=== PATIENT | male | born 1945 | race Caucasian/White ===

== ENCOUNTER 2017-04-21 16:16 | Inpatient (IN) | payer MEDICARE, OTHER ==
[~2017-04-21] VITALS: Ht 175.3 cm; Wt 75.0 kg
[~2017-04-21 16:16] MED LIST: ASPI81TA28 PO; ATOR-26 PO; CLOP1TAB15 PO; FAMO20TA11 PO; MULT-506 PO
[2017-04-21] MEDS ORDERED: FLM4 PO (17:44)
[2017-04-21] MEDS ORDERED: PRS5 PO (17:44)
[2017-04-21 18:09] LABS: BASO % 0.5 %; BASO ABS # 0.03 K/uL (0-0.2); COMPLETE YES; EOS % 3.4 %; HEMATOCRIT 36.4 % (42-52); IG% 0.2 %; LYMPH % 11.1 %; LYMPH ABS # 0.61 K/uL (1.2-3.4); MEAN CELL VOLUME 95.8 fL (80-100); MEAN CORPUSCULAR HEMOGLOBIN 31.6 pg (25-34); MEAN PLATELET VOLUME 9.6 fL (7.4-10.4); MONO % 11.6 %; NEUT % 73.2 %; PLATELET COUNT 192 K/uL (130-400); WHITE BLOOD COUNT 5.52 K/uL (4.8-10.8)
[2017-04-21 18:25] LABS: ALT/SGPT 25 U/L (12-78); BLOOD UREA NITROGEN 15 mg/dl (7-18); BUN/CREATININE RATIO 13.5 (10-20); C-REACTIVE PROTEIN 0.49 mg/dl (0-0.29); CALCIUM 9.2 mg/dl (8.5-10.1); CARBON DIOXIDE 26 mmol/L (21-32); CHLORIDE 106 mmol/L (98-107); CREATININE 1.08 mg/dl (0.60-1.40); GLUCOSE 88 mg/dl (70-99); POTASSIUM 3.9 mmol/L (3.5-5.1); SODIUM 138 mmol/L (136-145)
[2017-04-21 18:29] LABS: ALB/GLOB RATIO 0.7 (0.9-2); ALKALINE PHOSPHATASE 76 U/L (45-117); AST/SGOT 20 U/L (15-37)
--- NOTE | 2017-04-21 18:42 | DIAGNOSTIC IMAGING REPORT ---
CT OF THE HEAD WITHOUT CONTRAST CLINICAL HISTORY: Right eye pain and ptosis. COMPARISON STUDY: No previous studies for comparison. CT DOSE: 537.48 mGy.cm TECHNIQUE: Helical axial images of the head were obtained without IV contrast. Automated exposure control was utilized for the study. A dose lowering technique was utilized adhering to the principles of ALARA. FINDINGS: No acute intracranial hemorrhage, midline shift or mass effect is present. Mild ventricular dilatation is proportional to sulcal enlargement and likely due to mild atrophy. The basilar cisterns are patent. There are no extra-axial collections. Mild white matter hypodensity suggests small vessel disease. There is minimal bilateral basal ganglia calcification. No findings are noted to suggest acute dural sinus thrombosis or acute territorial infarct. There is subtle asymmetric infiltration adjacent to the right globe, including minimal retrobulbar infiltration. There is no retrobulbar mass or fluid collection. IMPRESSION: 1. No acute intracranial findings. 2. Subtle asymmetric infiltration adjacent to the right globe, including minimal retrobulbar infiltration with no retrobulbar mass or fluid collection. This suggests an infectious or inflammatory process. Electronically signed by: Carter Portillo M.D. 04/21/2017 6:40 PM Dictated Date/Time: 04/21/2017 6:19 PM
[2017-04-21] MEDS: MoRPHine SULFATE 4 MG/ML 1 ML CARP\\VIAL IV PRN ×3 (19:15→22:30)
--- NOTE | 2017-04-21 19:59 | EMERGENCY ROOM VISIT NOTE ---
History Report prepared by Kavitha: Ran Hodges Under the Supervision of: Dr. Loy Nguyen M.D. First contact with patient: 16:45 Chief Complaint: EYE PAIN Stated Complaint: RT EYE PAIN- REFERRED History of Present Illness The patient is a 72 year old male who presents to the Emergency Room with complaints of constant right eye pain beginning two days ago. The patient was seen by his PCP this morning for his symptoms, and was referred to an [employer] black belt. He was then seen by his [employer] black belt and was referred to the ED. He notes that he had his eyes dilated while at the [employer] black belt. The patient has a history of multiple myeloma, and was initially diagnosed recently. He notes that he had a Zometa infusion last week, and began experiencing body aches and headache for the next few days. He states that his headache persisted as his right eye pain began. The patient states that his eyelid began drooping this morning. He states that he is able to see out of his eye normally. His eye pain is worsened with movement of his eye. The patient notes that he has three cardiac stents in place. He denies any weakness. He is on Plavix. Source of History: patient Onset: Two days ago Position: eye (right) Quality: other (pain with eyelid drooping) Timing: constant Modifying Factors (Worsening): movement (of eye) Associated Symptoms: + headache, No weakness Note: Additional symptoms: resolved full body aches. Review of Systems All systems have been listed, reviewed, and are negative other than those previously mentioned. Please see Additional Medical History Sheet. Past Medical & Surgical Medical Problems: (1) CAD (coronary artery disease) (2) GERD (gastroesophageal reflux disease) (3) History of diverticulosis (4) History of kidney stones (5) HLD (hyperlipidemia) (6) HTN (hypertension) (7) Multiple myeloma Social History Problems: (1) Chest pain Family History FH: cancer BROTHER (Multiple Myeloma) FH: heart attack FH: heart disease FATHER Social History Smoking Status: Never Smoker Alcohol Use: none Drug Use: none Marital Status: Occupation Status: retired Current/Historical Medications Scheduled Aspirin (Aspirin Ec), 81 MG PO HS Atorvastatin (Lipitor), 80 MG PO QDD Clopidogrel (Plavix), 75 MG PO DAILY Famotidine (Pepcid), 20 MG PO DAILY Finasteride (Finasteride), 5 MG PO QAM Multivitamin (Multivitamin), 1 TAB PO DAILY Tamsulosin HCl (Tamsulosin HCl), 0.4 MG PO HS Allergies Coded Allergies: Penicillins (Unverified Allergy, Unknown, "PASSED OUT", 04/21/17) Physical Exam Vital Signs Date Time Temp Pulse Resp B/P (MAP) Pulse Ox O2 Delivery O2 Flow Rate FiO2 04/21/17 21:23 71 18 146/82 96 Room Air 04/21/17 18:39 64 18 145/85 98 Room Air 04/21/17 16:18 36.4 78 18 156/88 99 Room Air Right Eye Acuity: 20/30 w glasses Left Eye Acuity: 20/25 w glasses Physical Exam GENERAL: Patient awake, alert, oriented x 3. Patient follows commands. Patient does not appear toxic. Patient is adequately hydrated and well- nourished. SKIN: No erythema, pallor, cyanosis or rash HEENT: Normal head, pupils equal, reactive to light and accommodation. Ptosis of the right eye. Pupils are dilated (due to dilation by the [employer] belt). Ears normal. Oral cavity and posterior pharynx appear normal. Neck: Without adenopathy, no neck vein distention. LUNGS: Clear to auscultation. No wheezes, no rales, no rhonchi. HEART: No murmurs. No gallops. No rubs ABDOMEN: No masses, no rebound, no hepatomegaly or splenomegaly. EXTREMITIES: No signs of trauma. No pedal or pretibial edema. No calf or thigh tenderness. NEUROLOGIC: Cranial nerves II-XII within normal limits other than ptosis of the right eye. Patient moves all extremities well. No slurred speech. No gross motor sensory function deficits. Medical Decision & Procedures ER Provider Diagnostic Interpretation: Radiology results as stated below per my review and radiologist interpretation: CT OF THE HEAD WITHOUT CONTRAST FINDINGS: No acute intracranial hemorrhage, midline shift or mass effect is present. Mild ventricular dilatation is proportional to sulcal enlargement and likely due to mild atrophy. The basilar cisterns are patent. There are no extra-axial collections. Mild white matter hypodensity suggests small vessel disease. There is minimal bilateral basal ganglia calcification. No findings are noted to suggest acute dural sinus thrombosis or acute territorial infarct. There is subtle asymmetric infiltration adjacent to the right globe, including minimal retrobulbar infiltration. There is no retrobulbar mass or fluid collection. IMPRESSION: 1. No acute intracranial findings. 2. Subtle asymmetric infiltration adjacent to the right globe, including minimal retrobulbar infiltration with no retrobulbar mass or fluid collection. This suggests an infectious or inflammatory process. Electronically signed by: Carter Portillo M.D. 04/21/2017 6:40 PM Laboratory Results Test 04/21/17 17:50 Immature Granulocyte % (Auto) 0.2 % White Blood Count 5.52 K/uL (4.8-10.8) Red Blood Count 3.80 M/uL (4.7-6.1) Hemoglobin 12.0 g/dL (14.0-18.0) Hematocrit 36.4 % (42-52) Mean Corpuscular Volume 95.8 fL (80-100) Mean Corpuscular Hemoglobin 31.6 pg (25-34) Mean Corpuscular Hemoglobin Concent 33.0 g/dl (32-36) Platelet Count 192 K/uL (130-400) Mean Platelet Volume 9.6 fL (7.4-10.4) Neutrophils (%) (Auto) 73.2 % Lymphocytes (%) (Auto) 11.1 % Monocytes (%) (Auto) 11.6 % Eosinophils (%) (Auto) 3.4 % Basophils (%) (Auto) 0.5 % Neutrophils # (Auto) 4.04 K/uL (1.4-6.5) Lymphocytes # (Auto) 0.61 K/uL (1.2-3.4) Monocytes # (Auto) 0.64 K/uL (0.11-0.59) Eosinophils # (Auto) 0.19 K/uL (0-0.5) Basophils # (Auto) 0.03 K/uL (0-0.2) Immature Granulocyte # (Auto) 0.01 K/uL (0.00-0.02) Erythrocyte Sedimentation Rate 75 mm/hr (0-14) Total Bilirubin 0.2 mg/dl (0.2-1) Aspartate Amino Transf (AST/SGOT) 20 U/L (15-37) Alanine Aminotransferase (ALT/SGPT) 25 U/L (12-78) Alkaline Phosphatase 76 U/L (45-117) Troponin I < 0.015 ng/ml (0-0.045) C-Reactive Protein 0.49 mg/dl (0-0.29) Total Protein 8.2 gm/dl (6.4-8.2) Albumin 3.3 gm/dl (3.4-5.0) Globulin 4.9 gm/dl (2.5-4.0) Albumin/Globulin Ratio 0.7 (0.9-2) Procalcitonin < 0.05 ng/ml (0-0.5) Laboratory results as stated above per my review. Medications Administered Medications (Trade) Dose Ordered Sig/Álvaro Route Start Time Stop Time Status Last Admin Dose Admin Morphine Sulfate (MoRPHine SULFATE INJ) 4 mg Q1H PRN IV 04/21/17 19:00 04/21/17 23:23 DC 04/21/17 22:30 4 MG ECG Indication: other (headache) Rate (beats per minute): 68 Rhythm: normal sinus Findings: no acute ischemic change, no ectopy ED Course 164: Past medical records reviewed. The patient was evaluated in room A4B. A complete history and physical examination was performed. 1899: I updated the patient. He agrees to MRI. Ordered Morphine Sulfate 4 mg IV. 2029: The patient was signed out to Dr. Mayfield at the change of shift pending MRI results. Medical Decision Nurses notes reviewed. Medical history sheet reviewed. Differential diagnosis includes but is not limited to: multiple myeloma with metastasis, CVA, ICH, giant cell arteritis, Anam's syndrome and carotid aneurysm/stenosis. The patient was seen earlier today by his family physician and later by an [employer] black belt who sent him here. records from the eye doctor were reviewed. Multiple labs and imaging were obtained. CT was concerning for some slight infiltration behind the right eye. The patient did require pain medication while here. An MRI of his orbits was ordered but pending at time of sign off to Dr. Mayfield. I discussed care with the family who were awaiting results of the MRI. Medication Reconcilliation Current Medication List: was personally reviewed by me Blood Pressure Screening Patient's blood pressure: Elevated blood pressure Blood pressure disposition: Elevated BP felt to be situational Consults Time Called: 1849 Consulting Physician: Dr. Portillo - Radiology Returned Call: 1899 Discussed the patient's case with Dr. Portillo. He recommends MRI of the brain and orbits. Impression Primary Impression: Pain, eye, right Additional Impression: Ptosis, right Scribe Attestation The scribe's documentation has been prepared under my direction and personally reviewed by me in its entirety. I confirm that the note above accurately reflects all work, treatment, procedures, and medical decision making performed by me. Departure Information Dispostion Still a Patient (Signed out to Dr. Mayfield) Referrals Tacos Ngo M.D. (PCP) Patient Instructions My [facility] Problem Qualifiers
[2017-04-21] MEDS ORDERED: GADAVIST IV PRN (20:45)
--- NOTE | 2017-04-21 21:19 | DIAGNOSTIC IMAGING REPORT ---
MRI OF THE ORBITS COMBO CLINICAL HISTORY: Right eye pain and ptosis. COMPARISON STUDY: CT of the brain dated 04/21/2017. TECHNIQUE: MRI of the orbits is performed utilizing various T1 and T2-weighted sequences in the axial, sagittal, and coronal planes. Contrast-enhanced images were acquired following the IV administration of 7.5 cc of Gadavist. Diffusion imaging of the brain is also performed. FINDINGS: The bony orbits are grossly intact. There is nonspecific inflammatory stranding identified within the retrobulbar fat of the right orbit with patchy nonspecific enhancement. Faint inflammatory change is also suggested in the retrobulbar fat of the left orbit. No enhancing mass lesion is identified. No fluid collection is seen. The extraocular muscles are normal and symmetric. The majority inflammatory changes centered around the optic nerve. The optic nerves themselves are normal as visualized. The cavernous sinuses are normal in appearance. Trace mucosal thickening is seen within the frontal and ethmoid sinuses. The mastoid air cells are well pneumatized. The calvarium is intact as visualized. The brain parenchyma is normal as imaged noting age-related involutional change and mild microangiopathic disease. There is no restricted diffusion to suggest acute ischemia. No abnormal enhancement is seen on the postcontrast images. IMPRESSION: 1. There is nonspecific stranding and patchy abnormal enhancement identified within the retrobulbar fat in the right orbit. The appearance is nonspecific and suggests an infectious or inflammatory process such cellulitis or optic perineuritis. Clinical correlation will be essential and follow-up with ophthalmology is recommended. 2. Faint inflammatory change is also suggested in the retrobulbar fat of the left orbit. 3. No enhancing mass or localized fluid collection is identified in either orbit. 4. The extraocular muscles are normal and symmetric. 5. There is no significant adjacent paranasal sinus disease. Electronically signed by: Rl Alvarez M.D. 04/21/2017 9:17 PM Dictated Date/Time: 04/21/2017 9:03 PM
--- NOTE | 2017-04-21 21:58 | EMERGENCY ROOM VISIT NOTE ---
ED Visit Note This patient was signed out to me awaiting MRI results of the periorbital area. The results were similar to the CT scan results suggesting a nonspecific retro -all were inflammatory infectious process. The patient was started on IV cefepime. I spoke with the hospitalist who will see the patient further inpatient evaluation and care. The patient does have discomfort with movement of the eye, especially looking upward as well as a ptosis. The pupils appear to be symmetric and equally reactive to light. There is no myosis. Diagnosis: Retro-bulbar infection/inflammation of right eye
--- NOTE | 2017-04-21 22:05 | History and Physical ---
History & Physical Date & Time of Service: Apr 21, 2017 at 22:04 Chief Complaint: Rt Eye Pain- Referred Primary Care Physician: Tacos Ngo M.D. History of Present Illness Source: patient This is a 72 yo M with medical hx of CAD S/p X3 stent in RCA in 2010 , hyperlipidemia , Multiple Myeloma , recently diagnosed -came to ED with complain of Rt eye pain and swelling for past 1 day , pt mentions yesterday he woke up with rt sided eye pain , pressure /tenderness around rt orbit area, no headache, no fever or chills no trauma to eye had photophobia , no vision change, no diplopia or blurred vision ,no vision field deficit no itching , has clear secretion , was seen at [facility] with Dr Ashford -concerned about increased intra ocular pressure -pt was referred to [facility] pt mention - he had detail dilated eye exam , found to have normal vision , normal intra ocular pressure Import/Export Specialist was concern for extra ocular compression /pathology -pt was advised to come to ED for detail exam /scans and possible IV abx for extraocular infection /cellulitis in ER , pt was found afebrile , vitals stable , normal white count MRI of brain /orbit : There is nonspecific stranding and patchy abnormal enhancement identified within the retrobulbar fat in the right orbit. The appearance is nonspecific and suggests an infectious or inflammatory process such cellulitis or optic perineuritis. Past Medical/Surgical History Medical Problems: (1) CAD (coronary artery disease) Permanent Comment: S/p 3 stents to RCA in 2010 Status: Chronic (2) GERD (gastroesophageal reflux disease) Status: Chronic (3) History of diverticulosis Status: Chronic (4) History of kidney stones Status: Chronic (5) HLD (hyperlipidemia) Status: Chronic (6) HTN (hypertension) Status: Chronic (7) Multiple myeloma Status: Chronic Family History FH: cancer BROTHER (Multiple Myeloma) FH: heart attack FH: heart disease FATHER Social History Smoking Status: Never Smoker Drug Use: none Marital Status: Housing status: lives with significant other Occupational Status: retired Immunizations History of Influenza Vaccine: Yes Influenza Vaccine Date: Jan 31, 2010 History of Tetanus Vaccine?: Unknown History of Pneumococcal: Yes Pneumococcal Date: Apr 02, 2009 History of Hepatitis B Vaccine: No Multi-Drug Resistant Organisms History of MDRO: No Allergies Coded Allergies: Penicillins (Unverified Allergy, Unknown, "PASSED OUT", 04/21/17) Home Medications Scheduled Aspirin (Aspirin Ec), 81 MG PO HS Atorvastatin (Lipitor), 80 MG PO QDD Clopidogrel (Plavix), 75 MG PO DAILY Famotidine (Pepcid), 20 MG PO DAILY Finasteride (Finasteride), 5 MG PO QAM Multivitamin (Multivitamin), 1 TAB PO DAILY Tamsulosin HCl (Tamsulosin HCl), 0.4 MG PO HS Review of Systems Constitutional: No fever, No chills, No sweats, No weight loss, No weakness, No fatigue, No problem reported Eyes: + eye pain (rt sided eye pain ), + redness, + discharge, + problem reported (rt sided photophobia ) Respiratory: No cough, No sputum, No wheezing, No shortness of breath, No dyspnea on exertion, No dyspnea at rest, No hemoptysis, No problem reported Cardiovascular: No chest pain, No orthopnea, No PND, No edema, No claudication , No palpitations, No problem reported Abdomen: No pain, No nausea, No vomiting, No diarrhea, No constipation, No GI bleeding, No problem reported Musculoskeletal: No joint pain, No muscle pain, No swelling, No calf pain, No problem reported Genitourinary - Male: No hematuria, No dysuria, No urinary frequency, No urinary urgency, No urinary hesitancy, No urinary retention, No urinary incontinence, No penile discharge, No lesions, No impotence, No problem reported Neurologic: No memory loss, No paralysis, No weakness, No numbness/tingling, No vertigo, No balance problems, No problem reported Psychiatric: No depression symptoms, No anhedonism, No anxiety, No insomnia, No substance abuse, No problem reported Physical Exam Vital Signs Date Time Temp Pulse Resp B/P (MAP) Pulse Ox O2 Delivery O2 Flow Rate FiO2 04/21/17 21:23 71 18 146/82 96 Room Air 04/21/17 18:39 64 18 145/85 98 Room Air 04/21/17 16:18 36.4 78 18 156/88 99 Room Air General Appearance: WD/WN, no apparent distress Head: normocephalic, atraumatic Eyes: + pertinent finding (rt eye + swelling , positive tenderness on orbit , lid lag with swellling , conjunctiva injected , experiences pain with EOM movement ) ENT: hearing grossly normal, pharynx normal Neck: supple, no adenopathy, thyroid normal, no carotid bruits, trachea midline Respiratory/Chest: lungs clear, normal breath sounds, no respiratory distress Cardiovascular: regular rate, rhythm, no edema, no gallop, no JVD, no murmur, normal peripheral pulses Abdomen/GI: normal bowel sounds, non tender, soft Extremities/Musculoskelatal: normal inspection, no calf tenderness, normal capillary refill, no pedal edema, normal range of motion Neurologic/Psych: no motor/sensory deficits, alert, normal mood/affect Skin: normal color, warm/dry, no rash Lymphatic: no adenopathy Diagnostics Laboratory Results Results Past 24 Hours Test 04/21/17 17:50 Range/Units White Blood Count 5.52 4.8-10.8 K/uL Red Blood Count 3.80 4.7-6.1 M/uL Hemoglobin 12.0 14.0-18.0 g/dL Hematocrit 36.4 42-52 % Mean Corpuscular Volume 95.8 80-100 fL Mean Corpuscular Hemoglobin 31.6 25-34 pg Mean Corpuscular Hemoglobin Concent 33.0 32-36 g/dl Platelet Count 192 130-400 K/uL Mean Platelet Volume 9.6 7.4-10.4 fL Neutrophils (%) (Auto) 73.2 % Lymphocytes (%) (Auto) 11.1 % Monocytes (%) (Auto) 11.6 % Eosinophils (%) (Auto) 3.4 % Basophils (%) (Auto) 0.5 % Neutrophils # (Auto) 4.04 1.4-6.5 K/uL Lymphocytes # (Auto) 0.61 1.2-3.4 K/uL Monocytes # (Auto) 0.64 0.11-0.59 K/uL Eosinophils # (Auto) 0.19 0-0.5 K/uL Basophils # (Auto) 0.03 0-0.2 K/uL RDW Standard Deviation 45.5 36.4-46.3 fL RDW Coefficient of Variation 13.0 11.5-14.5 % Immature Granulocyte % (Auto) 0.2 % Immature Granulocyte # (Auto) 0.01 0.00-0.02 K/uL Erythrocyte Sedimentation Rate 75 0-14 mm/hr Sodium Level 138 136-145 mmol/L Potassium Level 3.9 3.5-5.1 mmol/L Chloride Level 106 98-107 mmol/L Carbon Dioxide Level 26 21-32 mmol/L Anion Gap 6.0 3-11 mmol/L Blood Urea Nitrogen 15 7-18 mg/dl Creatinine 1.08 0.60-1.40 mg/dl Est Creatinine Clear Calc Drug Dose 60.0 ml/min Estimated GFR () 78.0 Estimated GFR (Non- 67.3 BUN/Creatinine Ratio 13.5 10-20 Random Glucose 88 70-99 mg/dl Calcium Level 9.2 8.5-10.1 mg/dl Total Bilirubin 0.2 0.2-1 mg/dl Aspartate Amino Transf (AST/SGOT) 20 15-37 U/L Alanine Aminotransferase (ALT/SGPT) 25 12-78 U/L Alkaline Phosphatase 76 45-117 U/L Troponin I < 0.015 0-0.045 ng/ml C-Reactive Protein 0.49 0-0.29 mg/dl Total Protein 8.2 6.4-8.2 gm/dl Albumin 3.3 3.4-5.0 gm/dl Globulin 4.9 2.5-4.0 gm/dl Albumin/Globulin Ratio 0.7 0.9-2 Microbiology Results 04/21/17 Blood Culture, Ordered Pending 04/21/17 Blood Culture, Ordered Pending Diagnostic Radiology MRI OF ORBIT : IMPRESSION: 1. There is nonspecific stranding and patchy abnormal enhancement identified within the retrobulbar fat in the right orbit. The appearance is nonspecific and suggests an infectious or inflammatory process such cellulitis or optic perineuritis. Clinical correlation will be essential and follow-up with ophthalmology is recommended. 2. Faint inflammatory change is also suggested in the retrobulbar fat of the left orbit. 3. No enhancing mass or localized fluid collection is identified in either orbit. 4. The extraocular muscles are normal and symmetric. 5. There is no significant adjacent paranasal sinus disease. CT HEAD WITHOUT CONTRAST : IMPRESSION: 1. No acute intracranial findings. 2. Subtle asymmetric infiltration adjacent to the right globe, including minimal retrobulbar infiltration with no retrobulbar mass or fluid collection. This suggests an infectious or inflammatory process. Impression Assessment and Plan RT SIDED RETRO ORBITAL PAIN : presented with 2 days hx of rt eye pain and swelling no drainage no fever or chills, no trauma seen by His PCP today , was referred to [facility] -concern for marked proptosis of eye asked to come to ED for evaluation MRI of Orbit shows : There is nonspecific stranding and patchy abnormal enhancement identified within the retrobulbar fat in the right orbit. The appearance is nonspecific and suggests an infectious or inflammatory process such cellulitis or optic perineuritis. no fever or chills , normal white count no evidence of systemic infection no visual change empirically started on Iv Vancomycin and Zosyn ; ordered for blood culture Ophthalmology eval requested MULTIPLE MYELOMA : recently Dx : incidental finding of Lytic bone lesion on 03/19/17 during admission in [facility] for urinary retention /hematuria Bone marrow biopsy on 04/09/17 shows 16% plasma cells , monoclonal kappa plasma cell PET scan showed -multiple FGD avid lytic lesion throughout the axial and appendicular skeleton consistent with multiple myeloma follows with Heme Onc Dr Alicia pt is schedule to start on Chemotherapy Revlimid and Dexamethasone , and Zometa every 4 weeks for lytic bone lesion /MM/hypercalcemia started on Acyclovir for prophylaxis while on Velcade has not started on Valcade /Revlimid infusion yet pt received IV Zometa infusion last Wednesday04/16/17 ; felt weak , tired with joint pain over the weekend pt contacted Heme Onc Dr Escoto office with concern for Rt eye pain and possible side effect form Zometa pt was reassured -medication side effect was very unlikely arranged for Medicine follow up at the Clinic for rt eye exam HX OF CAD S/P PTCA : S/p 3 stents to RCA in 2010 no complain of chest pain and sob cont Aspirin , Plavix , statin DYSLIPIDEMIA : on Lipitor 80 mg daily BPH : cont Flomax , Proscar FULL CODE DVT PROPHYLAXIS : scd and teds ambulate DISPOSITION : Expected to be discharged home when medically stable Medicine follow up with Dr Ngo Level of Care Med/Surg Resuscitation Status FULL RESUSCITATION VTE Prophylaxis VTE Risk Assessment Done? Y/N: Yes Risk Level: Moderate Given or contraindicated: T.E.D. Stockings, SCD's Additional Copies To Tacos Ngo M.D. Gray, Arnoldo Jensen MD
[2017-04-21] MEDS ORDERED: VANCOMYCIN INJ 1,750 MG in SODIUM CHLORIDE 0.9% 500ML 500 ML IV STA (22:11)
[2017-04-21] MEDS ORDERED: MoRPHine SULFATE 2 MG/ML CARP IV PRN (22:15)
[2017-04-21 23:10] VITALS: BP 154/81; PULSE 81; TEMP 36.7; O2SAT 96; Ht 175.3 cm; Wt 75.0 kg
[2017-04-21] MEDS ORDERED: VANCOMYCIN CONSULT ACTIVE PRN (23:30)
[2017-04-21] MEDS ORDERED: POLYETHYLENE (MIRALAX) 17 GM PACK PO PRN (23:45)
[2017-04-21] MEDS ORDERED: ACETAMINOPHEN 325 MG TAB PO PRN (23:45)
[2017-04-21] MEDS ORDERED: MAGNESIUM HYDROXIDE SUSP 30 ML UDC PO PRN (23:45)
[2017-04-21] MEDS ORDERED: OXYCODONE/ACETAMINOPHEN 5-325 TAB PO PRN ×2 (23:45)
[2017-04-21] MEDS ORDERED: ONDANSETRON INJ 2 MG/ML 2 ML VIAL IV PRN (23:45)
[2017-04-21] MEDS ORDERED: ALUMINUM/MAGNESIUM/SIMETH (MAALOX MAX) 30 ML UDC PO PRN (23:45)
[2017-04-21] MEDS ORDERED: ZOLPIDEM TARTRATE 5 MG TAB PO PRN (23:45)
[2017-04-22] MEDS: CEFEPIME IV 2,000 MG in SYRINGE 7.5 ML IV SCH ×4 (02:02→23:28)
[2017-04-22] MEDS ORDERED: CEFEPIME IV 2,000 MG in DEXTROSE 5% 100ML 100 ML IV SCH (06:00)
[2017-04-22 06:31] LABS: HEMATOCRIT 34.6 % (42-52); MEAN CELL VOLUME 95.8 fL (80-100); MEAN CORPUSCULAR HEMOGLOBIN 31.6 pg (25-34); MEAN CORPUSCULAR HGB CONC 32.9 g/dl (32-36); MEAN PLATELET VOLUME 9.4 fL (7.4-10.4); PLATELET COUNT 176 K/uL (130-400); RED BLOOD COUNT 3.61 M/uL (4.7-6.1); WHITE BLOOD COUNT 6.01 K/uL (4.8-10.8)
[2017-04-22 07:11] LABS: CALCIUM 8.3 mg/dl (8.5-10.1); CREATININE 0.97 mg/dl (0.60-1.40); POTASSIUM 3.9 mmol/L (3.5-5.1)
[2017-04-22 07:33] VITALS: BP 123/75; PULSE 71; TEMP 37; O2SAT 97
[2017-04-22] MEDS: CLOPIDOGREL BISULFATE 75 MG TAB PO SCH (08:31)
[2017-04-22] MEDS: MULTIVITAMIN TAB PO SCH (08:31)
[2017-04-22] MEDS: FAMOTIDINE 20 MG TAB PO SCH (08:32)
[2017-04-22] MEDS: FINASTERIDE 5 MG TAB PO SCH (08:32)
[2017-04-22] MEDS: MoRPHine SULFATE 2 MG/ML CARP IV PRN ×2 (08:42→13:14)
--- NOTE | 2017-04-22 08:59 | Pharmacy Progress Note ---
Pharmacy Abx Initial Consult Date of Service Apr 22, 2017. Pharmacy Dosing Scope Date of Consult: 04/21/17 Consultation requested by: Dr. Medel Pharmacy is consulted to initiate Vancomycin IV dosing therapy, order appropriate labs and adjust drug dose/frequency. Subjective The patient is a 72 year old male admitted on Apr 21, 2017 at 22:00 with right sided eye cellulitis vs optic perineuritis. Objective Height (Feet): 5 Height (Inches): 9.00 Weight (Kilograms): 74.600 Vital Signs (Past 12Hrs) Vital Signs Past 12 Hours Date Time Temp Pulse Resp B/P (MAP) Pulse Ox O2 Delivery O2 Flow Rate FiO2 04/22/17 07:33 37.0 71 20 123/75 (91) 97 04/22/17 00:00 Room Air 04/21/17 23:10 36.7 81 18 154/81 96 Room Air 04/21/17 22:45 76 18 140/85 96 Room Air 04/21/17 21:23 71 18 146/82 96 Room Air Lab Results (24Hrs) Test 04/21/17 17:50 04/22/17 06:02 White Blood Count 5.52 6.01 Red Blood Count 3.80 3.61 Hemoglobin 12.0 11.4 Hematocrit 36.4 34.6 Mean Corpuscular Volume 95.8 95.8 Mean Corpuscular Hemoglobin 31.6 31.6 Mean Corpuscular Hemoglobin Concent 33.0 32.9 Platelet Count 192 176 Mean Platelet Volume 9.6 9.4 Neutrophils (%) (Auto) 73.2 Lymphocytes (%) (Auto) 11.1 Monocytes (%) (Auto) 11.6 Eosinophils (%) (Auto) 3.4 Basophils (%) (Auto) 0.5 Neutrophils # (Auto) 4.04 Lymphocytes # (Auto) 0.61 Monocytes # (Auto) 0.64 Eosinophils # (Auto) 0.19 Basophils # (Auto) 0.03 RDW Standard Deviation 45.5 45.9 RDW Coefficient of Variation 13.0 13.0 Immature Granulocyte % (Auto) 0.2 Immature Granulocyte # (Auto) 0.01 Erythrocyte Sedimentation Rate 75 Sodium Level 138 137 Potassium Level 3.9 3.9 Chloride Level 106 106 Carbon Dioxide Level 26 23 Anion Gap 6.0 8.0 Blood Urea Nitrogen 15 12 Creatinine 1.08 0.97 Est Creatinine Clear Calc Drug Dose 60.0 66.8 Estimated GFR () 78.0 88.8 Estimated GFR (Non- 67.3 76.6 BUN/Creatinine Ratio 13.5 12.0 Random Glucose 88 122 Calcium Level 9.2 8.3 Total Bilirubin 0.2 Aspartate Amino Transferase (AST) 20 Alanine Aminotransferase (ALT) 25 Alkaline Phosphatase 76 Troponin I < 0.015 C-Reactive Protein 0.49 Total Protein 8.2 Albumin 3.3 Globulin 4.9 Albumin/Globulin Ratio 0.7 Procalcitonin < 0.05 Micro Results Date/Time Source Procedure Growth Status 04/21/17 22:43 Blood Blood Culture Pending Received 04/21/17 22:38 Blood Blood Culture Pending Received Assessment & Plan Assessment 72 year old male admitted with right sided eye cellulitis vs optic perineuritis requiring IV Vancomycin and Cefepime. Plan IV Vancomycin for treatment of possible cellulitis Vancomycin IV * Loading dose: 1750 mg (23 mg/kg) x 1 at 2246 on 04/21 * Maintenance dose: 1000 mg IV (13.4 mg/kg) every 14 hours * Estimated pharmacokinetic parameters: T1/2 = 11.5hrs, Wilder = 0.06/hr, Vd = 0.7L /kg * Goal trough level for cellulitis : ~15 mcg/mL * Trough level ordered for 04/23/17 prior to 1400 dose Pharmacy will continue to follow and will adjust dose/frequency as necessary. Thank you.
[2017-04-22] MEDS ORDERED: VANCOMYCIN INJ 1,000 MG in SODIUM CHLORIDE 0.9% 250ML 250 ML IV SCH (09:00)
[2017-04-22] MEDS: VANCOMYCIN INJ 1,000 MG in SODIUM CHLORIDE 0.9% 250ML 250 ML IV SCH ×2 (09:33→23:28)
[2017-04-22] MEDS ORDERED: METHYLPREDNISOLONE IV 40 MG in SYRINGE 0 ML IV ONE ×2 (12:00→18:15)
--- NOTE | 2017-04-22 13:56 | Progress Note ---
Internal Med Progress Note Date of Service: Apr 22, 2017. Provider Documentation: SUBJECTIVE: Seen and examined at bedside Reports Right eye pain, double vision, tearing, sensitivity to light Denies chest pain, SOB, abd pain, dizziness No other complaints Family at beside OBJECTIVE: Vital Signs-as noted below Physical Exam: General Appearance:Moderately built and nourished, no apparent distress Head: normocephalic, Atraumatic Eyes: Right eye, congestion, tender, tearing, + Double vision Neck: supple, Trachea midline Respiratory/Chest: Normal breath sounds, CTA Cardiovascular: S1, S2, No murmur Abdomen/GI:Soft, Non tender, Bowel sounds present Extremities/Musculoskelatal:normal inspection, no edema Neurologic/Psych:AAOX3, grossly no focal neurological deficits Skin: normal color, warm Lab data as noted below. ASSESSMENT & PLAN: Right Retrobulbar pain: ? Retrobulbar cellulitis/Optic Neuritis presented with 2 days history of rt eye pain and swelling, and double vision Evaluated at [facility] Prior to admission-concern for marked proptosis of eye MRI of Orbit as below: No systemic infection Continue empiric IV Vancomycin and Cefepime blood culture: pending Will give a dose of solumedrol Ophthalmology eval requested: await for input Multiple Myeloma: recently diagnosed incidental finding of Lytic bone lesion on 03/19/[address] [facility] for urinary retention /hematuria Bone marrow biopsy on 04/09/17 shows 16% plasma cells , monoclonal kappa plasma cell PET scan showed -multiple FGD avid lytic lesion throughout the axial and appendicular skeleton consistent with multiple myeloma Follows with Heme Onc Dr Alicia Planned for Chemotherapy Revlimid and Dexamethasone , and Zometa every 4 weeks for lytic bone lesion /MM/hypercalcemia started on Acyclovir for prophylaxis while on Velcade has not started on Valcade /Revlimid infusion yet pt received IV Zometa infusion last Wednesday04/16/17 pt contacted Heme Onc Dr Escoto office with concern for Rt eye pain and possible side effect form Zometa pt was reassured -medication side effect was very unlikely H/O CAD S/P PTCA : S/p 3 stents to RCA in 2010 no complain of chest pain and sob continue Aspirin , Plavix , statin Dyslipidemia: Continue Lipitor 80 mg daily BPH : cont Flomax , Proscar Follows with as outpatient Code Status Full Code DVT Px: SCDs ambulate DISPOSITION : Expected to be discharged home when medically stable Medicine follow up with Dr Ngo PROCEDURES: Orbit MRI: 1. There is nonspecific stranding and patchy abnormal enhancement identified within the retrobulbar fat in the right orbit. The appearance is nonspecific and suggests an infectious or inflammatory process such cellulitis or optic perineuritis. Clinical correlation will be essential and follow-up with ophthalmology is recommended. 2. Faint inflammatory change is also suggested in the retrobulbar fat of the left orbit. 3. No enhancing mass or localized fluid collection is identified in either orbit. 4. The extraocular muscles are normal and symmetric. 5. There is no significant adjacent paranasal sinus disease. Vital Signs: Date Time Temp Pulse Resp B/P (MAP) Pulse Ox O2 Delivery O2 Flow Rate FiO2 04/22/17 08:30 Room Air 04/22/17 07:33 37.0 71 20 123/75 (91) 97 04/22/17 00:00 Room Air 04/21/17 23:10 36.7 81 18 154/81 96 Room Air 04/21/17 22:45 76 18 140/85 96 Room Air 04/21/17 21:23 71 18 146/82 96 Room Air 04/21/17 18:39 64 18 145/85 98 Room Air 04/21/17 16:18 36.4 78 18 156/88 99 Room Air Lab Results: Results Past 24 Hours Test 04/21/17 17:50 04/22/17 06:02 Range/Units White Blood Count 5.52 6.01 4.8-10.8 K/uL Red Blood Count 3.80 3.61 4.7-6.1 M/uL Hemoglobin 12.0 11.4 14.0-18.0 g/dL Hematocrit 36.4 34.6 42-52 % Mean Corpuscular Volume 95.8 95.8 80-100 fL Mean Corpuscular Hemoglobin 31.6 31.6 25-34 pg Mean Corpuscular Hemoglobin Concent 33.0 32.9 32-36 g/dl Platelet Count 192 176 130-400 K/uL Mean Platelet Volume 9.6 9.4 7.4-10.4 fL Neutrophils (%) (Auto) 73.2 % Lymphocytes (%) (Auto) 11.1 % Monocytes (%) (Auto) 11.6 % Eosinophils (%) (Auto) 3.4 % Basophils (%) (Auto) 0.5 % Neutrophils # (Auto) 4.04 1.4-6.5 K/uL Lymphocytes # (Auto) 0.61 1.2-3.4 K/uL Monocytes # (Auto) 0.64 0.11-0.59 K/uL Eosinophils # (Auto) 0.19 0-0.5 K/uL Basophils # (Auto) 0.03 0-0.2 K/uL RDW Standard Deviation 45.5 45.9 36.4-46.3 fL RDW Coefficient of Variation 13.0 13.0 11.5-14.5 % Immature Granulocyte % (Auto) 0.2 % Immature Granulocyte # (Auto) 0.01 0.00-0.02 K/uL Erythrocyte Sedimentation Rate 75 0-14 mm/hr Sodium Level 138 137 136-145 mmol/L Potassium Level 3.9 3.9 3.5-5.1 mmol/L Chloride Level 106 106 98-107 mmol/L Carbon Dioxide Level 26 23 21-32 mmol/L Anion Gap 6.0 8.0 3-11 mmol/L Blood Urea Nitrogen 15 12 7-18 mg/dl Creatinine 1.08 0.97 0.60-1.40 mg/dl Est Creatinine Clear Calc Drug Dose 60.0 66.8 ml/min Estimated GFR () 78.0 88.8 Estimated GFR (Non- 67.3 76.6 BUN/Creatinine Ratio 13.5 12.0 10-20 Random Glucose 88 122 70-99 mg/dl Calcium Level 9.2 8.3 8.5-10.1 mg/dl Total Bilirubin 0.2 0.2-1 mg/dl Aspartate Amino Transf (AST/SGOT) 20 15-37 U/L Alanine Aminotransferase (ALT/SGPT) 25 12-78 U/L Alkaline Phosphatase 76 45-117 U/L Troponin I < 0.015 0-0.045 ng/ml C-Reactive Protein 0.49 0-0.29 mg/dl Total Protein 8.2 6.4-8.2 gm/dl Albumin 3.3 3.4-5.0 gm/dl Globulin 4.9 2.5-4.0 gm/dl Albumin/Globulin Ratio 0.7 0.9-2 Procalcitonin < 0.05 0-0.5 ng/ml Microbiology Results 04/21/17 Blood Culture, Received Pending 04/21/17 Blood Culture, Received Pending
[2017-04-22 15:10] VITALS: BP 121/71; PULSE 69; TEMP 37.1; O2SAT 96
[2017-04-22] MEDS: ATORVASTATIN 40 MG TAB PO SCH (16:57)
--- NOTE | 2017-04-22 17:49 | Ophthalmology Consultation ---
Ophthalmology Consultation Date of Service: Apr 22, 2017. Requested By: [facility] History of Present Illness: 72 y/o male admitted for right eye pain, ptosis CC: right eye pain Vision: unchanged Location (of CC): OD Quality/Severity: was severe, but now improved after getting IV solumedrol Duration: started <1 week ago Timing: seemed to have started after receiving zometa for multiple myeloma Context: above Associated Signs/Symptoms: diplopia Modifying Factors: steroid improved No other eye complaints. Mood and Affect: normal Past Ocular History: Right Eye: 1. glasses Left Eye: 1. glasses Medications: see EMR Relevant Past Medical History: multiple myeloma [facility] ([facility]) OD: 20/30 OS: 20/30 IOP: 18 OD and 19 OS tonopen VF: full to count fingers OU Motility: restricted adduction OD; pain w/ EOM OD External: +upper lid edema OD; The ocular adnexae are unremarkable OS SLE: Lids/Lashes: +upper lid edema OD; wnl OS Conjunctiva/Sclera: +chemosis OD; quiet OS Cornea: clear OU Anterior Chamber: deep and quiet OU Iris: normal OU; no NVI OU Lens: +nsc OU Dilated fundus exam OD: vitreous: clear optic nerve: 0.3, no edema/pallor/NVD macula: wnl vessels: wnl Midperiphery: wnl periphery: no RT/RD Dilated fundus exam OS: vitreous: clear optic nerve: 0.3, no edema/pallor/NVD macula: wnl vessels: wnl Midperiphery: wnl periphery: no RT/RD Assessment and Plan: 1. 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 Edin Núñez comes to [facility] once per week) -recommend high dose oral steroids 1mg/kg for 1 week upon discharge, then slow taper over 4 weeks until f/u orbital specialist Jacques De Anda DO
[2017-04-22 19:47] VITALS: BP 130/73; PULSE 65; TEMP 36.8; O2SAT 96
[2017-04-22] MEDS: ASPIRIN 81 MG ECTAB PO SCH (20:17)
[2017-04-22] MEDS: TAMSULOSIN HCL 0.4 MG CAP PO SCH (20:17)
[2017-04-22 23:47] VITALS: BP 134/70; PULSE 63; TEMP 36.4; O2SAT 96
[2017-04-23 05:16] VITALS: BP 116/66; PULSE 63; TEMP 36.5; O2SAT 98
[2017-04-23 06:30] LABS: BASO % 0.1 %; BASO ABS # 0.01 K/uL (0-0.2); COMPLETE YES; EOS % 0.1 %; HEMATOCRIT 36.5 % (42-52); IG% 0.2 %; LYMPH % 6.6 %; LYMPH ABS # 0.54 K/uL (1.2-3.4); MEAN CELL VOLUME 95.3 fL (80-100); MEAN CORPUSCULAR HEMOGLOBIN 31.3 pg (25-34); MEAN CORPUSCULAR HGB CONC 32.9 g/dl (32-36); MEAN PLATELET VOLUME 9.5 fL (7.4-10.4); PLATELET COUNT 176 K/uL (130-400); RED BLOOD COUNT 3.83 M/uL (4.7-6.1); WHITE BLOOD COUNT 8.16 K/uL (4.8-10.8)
[2017-04-23 07:01] LABS: CALCIUM 8.9 mg/dl (8.5-10.1); CREATININE 0.85 mg/dl (0.60-1.40); POTASSIUM 4.2 mmol/L (3.5-5.1)
[2017-04-23 07:16] VITALS: BP 129/75; PULSE 64; TEMP 36.3; O2SAT 98
[2017-04-23] MEDS ORDERED: METHYLPREDNISOLONE IV 40 MG in SYRINGE 0 ML IV ONE (08:00)
[2017-04-23] MEDS: CLOPIDOGREL BISULFATE 75 MG TAB PO SCH (08:12)
[2017-04-23] MEDS: FINASTERIDE 5 MG TAB PO SCH (08:12)
[2017-04-23] MEDS: MULTIVITAMIN TAB PO SCH (08:12)
[2017-04-23] MEDS: FAMOTIDINE 20 MG TAB PO SCH (08:12)
[2017-04-23] MEDS: CEFEPIME IV 2,000 MG in SYRINGE 7.5 ML IV SCH ×2 (08:16→17:06)
[2017-04-23 11:25] VITALS: BP 133/70; PULSE 64; TEMP 36.7; O2SAT 96
--- NOTE | 2017-04-23 12:55 | Progress Note ---
Internal Med Progress Note Date of Service: Apr 23, 2017. Provider Documentation: SUBJECTIVE: Seen and examined at bedside Significant improvement from yesterday eye pain, double vision resolved Denies chest pain, SOB, abd pain, dizziness No other complaints Family at beside OBJECTIVE: Vital Signs-as noted below Physical Exam: General Appearance:Moderately built and nourished, no apparent distress Head: normocephalic, Atraumatic Eyes: Right eye congestion improved Neck: supple, Trachea midline Respiratory/Chest: Normal breath sounds, CTA Cardiovascular: S1, S2, No murmur Abdomen/GI:Soft, Non tender, Bowel sounds present Extremities/Musculoskelatal:normal inspection, no edema Neurologic/Psych:AAOX3, grossly no focal neurological deficits Skin: normal color, warm Lab data as noted below. ASSESSMENT & PLAN: Right Retrobulbar pain:Nonspecific orbital inflammation, possible pseudotumor presented with 2 days history of rt eye pain and swelling, and double vision Appreciate Ophthalmology Input Needs follow up with orbital specialist Dr. Edin Núñez at [facility] [address] for further evaluation on 04/26/17 at 12:20pm MRI of Orbit as below: No signs of systemic infection Continue empiric IV Vancomycin and Cefepime blood culture:No growth to date Continue solumedrol Plan to discharge on PO Abx and prednisone upon discharge Multiple Myeloma: recently diagnosed incidental finding of Lytic bone lesion on 03/19/17 during admission in [facility] for urinary retention /hematuria Bone marrow biopsy on 04/09/17 shows 16% plasma cells , monoclonal kappa plasma cell PET scan showed -multiple FGD avid lytic lesion throughout the axial and appendicular skeleton consistent with multiple myeloma Follows with Heme Onc Dr Alicia Planned for Chemotherapy Revlimid and Dexamethasone , and Zometa every 4 weeks for lytic bone lesion /MM/hypercalcemia started on Acyclovir for prophylaxis while on Velcade has not started on Valcade /Revlimid infusion yet pt received IV Zometa infusion last Wednesday04/16/17 pt contacted Heme Onc Dr Escoto office with concern for Rt eye pain and possible side effect form Zometa pt was reassured -medication side effect was very unlikely Discussed with : check serum Viscosity level H/O CAD S/P PTCA : S/p 3 stents to RCA in 2010 no complain of chest pain and sob continue Aspirin , Plavix , statin Dyslipidemia: Continue Lipitor 80 mg daily BPH : continue Flomax , Proscar Follows with as outpatient Code Status Full Code DVT Px: SCDs ambulate DISPOSITION : Plan to discharge home tomorrow if stable Follow up your physician Dr Ngo on 04/29/17 at 10:05 am Follow up with orbital specialist Dr. Edin Núñez at [facility] for further evaluation on 04/26/17 at 12:20pm PROCEDURES: Orbit MRI: 1. There is nonspecific stranding and patchy abnormal enhancement identified within the retrobulbar fat in the right orbit. The appearance is nonspecific and suggests an infectious or inflammatory process such cellulitis or optic perineuritis. Clinical correlation will be essential and follow-up with ophthalmology is recommended. 2. Faint inflammatory change is also suggested in the retrobulbar fat of the left orbit. 3. No enhancing mass or localized fluid collection is identified in either orbit. 4. The extraocular muscles are normal and symmetric. 5. There is no significant adjacent paranasal sinus disease. Vital Signs: Date Time Temp Pulse Resp B/P (MAP) Pulse Ox O2 Delivery O2 Flow Rate FiO2 04/23/17 16:00 Room Air 04/23/17 14:48 36.7 64 20 118/69 (85) 96 Room Air 04/23/17 11:25 36.7 64 20 133/70 (91) 96 Room Air 04/23/17 08:00 Room Air 04/23/17 07:16 36.3 64 18 129/75 (93) 98 Room Air 04/23/17 05:16 36.5 63 16 116/66 (83) 98 Room Air 04/23/17 00:00 Room Air 04/22/17 23:47 36.4 63 16 134/70 (91) 96 Room Air 04/22/17 19:47 36.8 65 18 130/73 (92) 96 Room Air Lab Results: Results Past 24 Hours Test 04/23/17 06:13 04/23/17 13:18 Range/Units White Blood Count 8.16 4.8-10.8 K/uL Red Blood Count 3.83 4.7-6.1 M/uL Hemoglobin 12.0 14.0-18.0 g/dL Hematocrit 36.5 42-52 % Mean Corpuscular Volume 95.3 80-100 fL Mean Corpuscular Hemoglobin 31.3 25-34 pg Mean Corpuscular Hemoglobin Concent 32.9 32-36 g/dl Platelet Count 176 130-400 K/uL Mean Platelet Volume 9.5 7.4-10.4 fL Neutrophils (%) (Auto) 81.0 % Lymphocytes (%) (Auto) 6.6 % Monocytes (%) (Auto) 12.0 % Eosinophils (%) (Auto) 0.1 % Basophils (%) (Auto) 0.1 % Neutrophils # (Auto) 6.60 1.4-6.5 K/uL Lymphocytes # (Auto) 0.54 1.2-3.4 K/uL Monocytes # (Auto) 0.98 0.11-0.59 K/uL Eosinophils # (Auto) 0.01 0-0.5 K/uL Basophils # (Auto) 0.01 0-0.2 K/uL RDW Standard Deviation 44.2 36.4-46.3 fL RDW Coefficient of Variation 12.7 11.5-14.5 % Immature Granulocyte % (Auto) 0.2 % Immature Granulocyte # (Auto) 0.02 0.00-0.02 K/uL Erythrocyte Sedimentation Rate 68 0-14 mm/hr Sodium Level 136 136-145 mmol/L Potassium Level 4.2 3.5-5.1 mmol/L Chloride Level 104 98-107 mmol/L Carbon Dioxide Level 24 21-32 mmol/L Anion Gap 8.0 3-11 mmol/L Blood Urea Nitrogen 10 7-18 mg/dl Creatinine 0.85 0.60-1.40 mg/dl Est Creatinine Clear Calc Drug Dose 76.3 ml/min Estimated GFR () 99.5 Estimated GFR (Non- 85.8 BUN/Creatinine Ratio 12.0 10-20 Random Glucose 111 70-99 mg/dl Calcium Level 8.9 8.5-10.1 mg/dl Vancomycin Level Trough 8.8 SEE COMMENT mcg/ml
[2017-04-23] MEDS ORDERED: VANCOMYCIN TROUGH ONE (13:30)
[2017-04-23] MEDS: VANCOMYCIN INJ 1,000 MG in SODIUM CHLORIDE 0.9% 250ML 250 ML IV SCH (14:25)
[2017-04-23 14:48] VITALS: BP 118/69; PULSE 64; TEMP 36.7; O2SAT 96
--- NOTE | 2017-04-23 16:14 | Pharmacy Progress Note ---
Pharmacy Abx Dose Progress Nt Date of Service Apr 23, 2017. Pharmacy Dosing Scope The patient is currently receiving the following antimicrobial agents per Pharmacy consult: 1000 mg IV every 14 hours Objective Height (Feet): 5 Height (Inches): 9.00 Weight (Kilograms): 75.400 Vital Signs (Past 12Hrs) Vital Signs Past 12 Hours Date Time Temp Pulse Resp B/P (MAP) Pulse Ox O2 Delivery O2 Flow Rate FiO2 04/23/17 14:48 36.7 64 20 118/69 (85) 96 Room Air 04/23/17 11:25 36.7 64 20 133/70 (91) 96 Room Air 04/23/17 08:00 Room Air 04/23/17 07:16 36.3 64 18 129/75 (93) 98 Room Air 04/23/17 05:16 36.5 63 16 116/66 (83) 98 Room Air Lab Results (24Hrs) Item Value Date Time Creatinine 0.85 mg/dl 04/23/17 0613 Est Creatinine Clear Calc Drug Dose 76.3 ml/min 04/23/17 0613 Estimated GFR () 99.5 04/23/17 0613 Estimated GFR (Non- 85.8 04/23/17 0613 Laboratory Tests (24 Hours) Test 04/23/17 06:13 Erythrocyte Sedimentation Rate 68 mm/hr (0-14) H White Blood Count 8.16 K/uL (4.8-10.8) Red Blood Count 3.83 M/uL (4.7-6.1) L Hemoglobin 12.0 g/dL (14.0-18.0) L Hematocrit 36.5 % (42-52) L Mean Corpuscular Volume 95.3 fL (80-100) Mean Corpuscular Hemoglobin 31.3 pg (25-34) Mean Corpuscular Hemoglobin Concent 32.9 g/dl (32-36) Platelet Count 176 K/uL (130-400) Mean Platelet Volume 9.5 fL (7.4-10.4) Neutrophils (%) (Auto) 81.0 % Lymphocytes (%) (Auto) 6.6 % Monocytes (%) (Auto) 12.0 % Eosinophils (%) (Auto) 0.1 % Basophils (%) (Auto) 0.1 % Neutrophils # (Auto) 6.60 K/uL (1.4-6.5) H Lymphocytes # (Auto) 0.54 K/uL (1.2-3.4) L Monocytes # (Auto) 0.98 K/uL (0.11-0.59) H Eosinophils # (Auto) 0.01 K/uL (0-0.5) Basophils # (Auto) 0.01 K/uL (0-0.2) Micro Results Date/Time Source Procedure Growth Status 04/21/17 22:43 Blood Blood Culture - Preliminary NO GROWTH TO DATE. Resulted 04/21/17 22:38 Blood Blood Culture - Preliminary NO GROWTH TO DATE. Resulted Assessment & Plan Assessment 72 year old male receiving vancomycin 1,000mg every 14 hours and cefepime 2 grams every 8 hours for treatment of right sided eye cellulitis vs optic perineuritis. Day # 3/ of antimicrobial therapy Plan Vancomycin IV * Trough level of 8.8 mcg/mL on 04/23/17 is subtherapeutic. * Change to Vancomycin 1,000 mg IV every 12 hours * Goal trough level for Cellulitis : 15 mcg/mL * Trough or random level ordered for: 04/25/17 prior to 12 noon dose Pharmacy will continue to follow and will adjust dose/frequency as necessary. Thank you.
[2017-04-23] MEDS: ATORVASTATIN 40 MG TAB PO SCH (17:07)
[2017-04-23 19:26] VITALS: BP 125/72; PULSE 71; TEMP 36.7; O2SAT 97
[2017-04-23] MEDS: METHYLPREDNISOLONE IV 40 MG in SYRINGE 0 ML IV SCH (20:21)
[2017-04-23] MEDS: ASPIRIN 81 MG ECTAB PO SCH (20:24)
[2017-04-23] MEDS: TAMSULOSIN HCL 0.4 MG CAP PO SCH (20:25)
[2017-04-23 23:23] VITALS: BP 125/73; PULSE 69; TEMP 36.7; O2SAT 99
[2017-04-24] MEDS ORDERED: VANCOMYCIN INJ 1,000 MG in SODIUM CHLORIDE 0.9% 250ML 250 ML IV SCH ×2
[2017-04-24] MEDS: CEFEPIME IV 2,000 MG in SYRINGE 7.5 ML IV SCH ×2 (00:23→09:12)
[2017-04-24 05:14] VITALS: BP 110/65; PULSE 67; TEMP 36.5; O2SAT 98
[2017-04-24 07:17] LABS: BUN/CREATININE RATIO 16.7 (10-20); CALCIUM 8.9 mg/dl (8.5-10.1); CREATININE 0.87 mg/dl (0.60-1.40); POTASSIUM 4.4 mmol/L (3.5-5.1)
[2017-04-24 07:21] VITALS: BP 115/65; PULSE 60; TEMP 36.5; O2SAT 97
--- NOTE | 2017-04-24 09:08 | Progress Note ---
Internal Med Progress Note Date of Service: Apr 24, 2017. Provider Documentation: SUBJECTIVE: Seen and examined at bedside Feels well Minimal R eye discomfort double vision resolved Denies chest pain, SOB, abd pain, dizziness No other complaints Eager to get discharged OBJECTIVE: Vital Signs-as noted below Physical Exam: General Appearance:Moderately built and nourished, no apparent distress Head: normocephalic, Atraumatic Eyes: Right eye congestion improved Neck: supple, Trachea midline Respiratory/Chest: Normal breath sounds, CTA Cardiovascular: S1, S2, No murmur Abdomen/GI:Soft, Non tender, Bowel sounds present Extremities/Musculoskelatal:normal inspection, no edema Neurologic/Psych:AAOX3, grossly no focal neurological deficits Skin: normal color, warm Lab data as noted below. ASSESSMENT & PLAN: Right Retrobulbar pain:Nonspecific orbital inflammation, possible pseudotumor presented with 2 days history of rt eye pain and swelling, and double vision Appreciate Ophthalmology Input Needs follow up with orbital specialist Dr. Edin Núñez at [facility] for further evaluation on 04/26/17 at 12:20pm MRI of Orbit as below: No signs of systemic infection Continue empiric IV Vancomycin and Cefepime blood culture:No growth to date Continue solumedrol Will switch to PO Abx and prednisone Multiple Myeloma: recently diagnosed incidental finding of Lytic bone lesion on 03/19/17 during admission in [facility] for urinary retention /hematuria Bone marrow biopsy on 04/09/17 shows 16% plasma cells , monoclonal kappa plasma cell PET scan showed -multiple FGD avid lytic lesion throughout the axial and appendicular skeleton consistent with multiple myeloma Follows with Heme Onc Dr Alicia Planned for Chemotherapy Revlimid and Dexamethasone , and Zometa every 4 weeks for lytic bone lesion /MM/hypercalcemia started on Acyclovir for prophylaxis while on Velcade has not started on Valcade /Revlimid infusion yet pt received IV Zometa infusion last Wednesday04/16/17 pt contacted Heme Onc Dr Escoto office with concern for Rt eye pain and possible side effect form Zometa pt was reassured -medication side effect was very unlikely Discussed with : check serum Viscosity level: pending H/O CAD S/P PTCA : S/p 3 stents to RCA in 2010 no complain of chest pain and sob continue Aspirin , Plavix , statin Dyslipidemia: Continue Lipitor 80 mg daily BPH : continue Flomax , Proscar Follows with as outpatient Code Status Full Code DVT Px: SCDs ambulate DISPOSITION : Plan to discharge home tomorrow if stable Follow up your physician Dr Ngo on 04/29/17 at 10:05 am Follow up with orbital specialist Dr. Edin Núñez at [facility] for further evaluation on 04/26/17 at 12:20pm Follow up with your Heme Oncologist in 1 week as advised Complete the antibiotic and prednisone course as prescribed Seek immediate medical attention if your symptoms reoccur or worsen PROCEDURES: Orbit MRI: 1. There is nonspecific stranding and patchy abnormal enhancement identified within the retrobulbar fat in the right orbit. The appearance is nonspecific and suggests an infectious or inflammatory process such cellulitis or optic perineuritis. Clinical correlation will be essential and follow-up with ophthalmology is recommended. 2. Faint inflammatory change is also suggested in the retrobulbar fat of the left orbit. 3. No enhancing mass or localized fluid collection is identified in either orbit. 4. The extraocular muscles are normal and symmetric. 5. There is no significant adjacent paranasal sinus disease. Vital Signs: Date Time Temp Pulse Resp B/P (MAP) Pulse Ox O2 Delivery O2 Flow Rate FiO2 04/24/17 07:21 36.5 60 22 115/65 (82) 97 Room Air 04/24/17 05:14 36.5 67 22 110/65 (80) 98 Room Air 04/24/17 00:00 Room Air 04/23/17 23:23 36.7 69 19 125/73 (90) 99 Room Air 04/23/17 20:00 Room Air 04/23/17 19:26 36.7 71 19 125/72 (89) 97 Room Air 04/23/17 16:00 Room Air 04/23/17 14:48 36.7 64 20 118/69 (85) 96 Room Air 04/23/17 11:25 36.7 64 20 133/70 (91) 96 Room Air Lab Results: Results Past 24 Hours Test 04/23/17 13:18 04/23/17 18:49 04/24/17 06:08 Range/Units Vancomycin Level Trough 8.8 SEE COMMENT mcg/ml Sodium Level 140 136-145 mmol/L Potassium Level 4.4 3.5-5.1 mmol/L Chloride Level 108 98-107 mmol/L Carbon Dioxide Level 23 21-32 mmol/L Anion Gap 9.0 3-11 mmol/L Blood Urea Nitrogen 15 7-18 mg/dl Creatinine 0.87 0.60-1.40 mg/dl Est Creatinine Clear Calc Drug Dose 74.5 ml/min Estimated GFR () 98.5 Estimated GFR (Non- 85.0 BUN/Creatinine Ratio 16.7 10-20 Random Glucose 124 70-99 mg/dl Calcium Level 8.9 8.5-10.1 mg/dl
[2017-04-24] MEDS: FAMOTIDINE 20 MG TAB PO SCH (09:12)
[2017-04-24] MEDS: CLOPIDOGREL BISULFATE 75 MG TAB PO SCH (09:12)
[2017-04-24] MEDS: MULTIVITAMIN TAB PO SCH (09:12)
[2017-04-24] MEDS: METHYLPREDNISOLONE IV 40 MG in SYRINGE 0 ML IV SCH (09:13)
[2017-04-24] MEDS: FINASTERIDE 5 MG TAB PO SCH (09:13)
[2017-04-24] MEDS ORDERED: PRD10 PO (09:18)
[2017-04-24] MEDS ORDERED: LEVO1TAB35 PO (09:18)
--- NOTE | 2017-04-24 09:22 | Discharge Summary ---
Discharge Summary Date of Service Apr 24, 2017. Discharge Summary Admission Date: Apr 21, 2017 at 22:00 Discharge Date: Apr 24, 2017 Discharge Disposition: Home Principal Diagnosis: Nonspecific orbital inflammation, possible pseudotumor Procedures: CT head: 1. No acute intracranial findings. 2. Subtle asymmetric infiltration adjacent to the right globe, including minimal retrobulbar infiltration with no retrobulbar mass or fluid collection. This suggests an infectious or inflammatory process. Orbit MRI: 1. There is nonspecific stranding and patchy abnormal enhancement identified within the retrobulbar fat in the right orbit. The appearance is nonspecific and suggests an infectious or inflammatory process such cellulitis or optic perineuritis. Clinical correlation will be essential and follow-up with ophthalmology is recommended. 2. Faint inflammatory change is also suggested in the retrobulbar fat of the left orbit. 3. No enhancing mass or localized fluid collection is identified in either orbit. 4. The extraocular muscles are normal and symmetric. 5. There is no significant adjacent paranasal sinus disease. Consultations: Ophthalmology Pending Studies/Follow-Up: Follow up your physician Dr Ngo on 04/29/17 at 10:05 am Follow up with orbital specialist Dr. Edin Núñez at [facility] for further evaluation on 04/26/17 at 12:20pm Follow up with your Heme Oncologist in 1 week as advised Complete the antibiotic and prednisone course as prescribed Seek immediate medical attention if your symptoms reoccur or worsen Medication Reconciliation New Medications: Levofloxacin (Levaquin) 750 Mg Tab 750 MG PO DAILY for 5 Days, #5 TAB Prednisone (Prednisone) 10 Mg Tab 70 MG PO DAILY for 5 Days, #35 TABS Continued Medications: Aspirin (Aspirin Ec) 81 Mg Tab 81 MG PO HS Atorvastatin (Lipitor) 80 Mg Tab 80 MG PO QDD, TAB Clopidogrel (Plavix) 75 Mg Tab 75 MG PO DAILY, TAB Famotidine (Pepcid) 20 Mg Tab 20 MG PO DAILY, TAB Finasteride (Finasteride) 5 Mg Tab 5 MG PO QAM Multivitamin (Multivitamin) Tab 1 TAB PO DAILY, TAB Tamsulosin HCl (Tamsulosin HCl) 0.4 Mg Cap 0.4 MG PO HS Admission Information HPI (per Admitting provider): This is a 72 yo M with medical hx of CAD S/p X3 stent in RCA in 2010 , hyperlipidemia , Multiple Myeloma , recently diagnosed -came to ED with complain of Rt eye pain and swelling for past 1 day , pt mentions yesterday he woke up with rt sided eye pain , pressure /tenderness around rt orbit area, no headache, no fever or chills no trauma to eye had photophobia , no vision change, no diplopia or blurred vision ,no vision field deficit no itching , has clear secretion , was seen at [facility] with Dr Ashford -concerned about increased intra ocular pressure -pt was referred to [facility] pt mention - he had detail dilated eye exam , found to have normal vision , normal intra ocular pressure [employer] was concern for extra ocular compression /pathology -pt was advised to come to ED for detail exam /scans and possible IV abx for extraocular infection /cellulitis in ER , pt was found afebrile , vitals stable , normal white count MRI of brain /orbit : There is nonspecific stranding and patchy abnormal enhancement identified within the retrobulbar fat in the right orbit. The appearance is nonspecific and suggests an infectious or inflammatory process such cellulitis or optic perineuritis. Physical Exam (per Admitting): General Appearance: WD/WN, no apparent distress Head: normocephalic, atraumatic Eyes: + pertinent finding (rt eye + swelling , positive tenderness on orbit , lid lag with swellling , conjunctiva injected , experiences pain with EOM movement ) ENT: hearing grossly normal, pharynx normal Neck: supple, no adenopathy, thyroid normal, no carotid bruits, trachea midline Respiratory/Chest: lungs clear, normal breath sounds, no respiratory distress Cardiovascular: regular rate, rhythm, no edema, no gallop, no JVD, no murmur , normal peripheral pulses Abdomen/GI: normal bowel sounds, non tender, soft Extremities/Musculoskelatal: normal inspection, no calf tenderness, normal capillary refill, no pedal edema, normal range of motion Neurologic/Psych: no motor/sensory deficits, alert, normal mood/affect Skin: normal color, warm/dry, no rash Lymphatic: no adenopathy Hospital Course Right Retrobulbar pain:Nonspecific orbital inflammation, possible pseudotumor presented with 2 days history of rt eye pain and swelling, and double vision Appreciate Ophthalmology Input Needs follow up with orbital specialist Dr. Edin Núñez at [facility] for further evaluation on 04/26/17 at 12:20pm MRI of Orbit as below: No signs of systemic infection Continue empiric IV Vancomycin and Cefepime blood culture:No growth to date Continue solumedrol Will switch to PO Abx and prednisone Multiple Myeloma: recently diagnosed incidental finding of Lytic bone lesion on 03/19/17 during admission in [facility] for urinary retention /hematuria Bone marrow biopsy on 04/09/17 shows 16% plasma cells , monoclonal kappa plasma cell PET scan showed -multiple FGD avid lytic lesion throughout the axial and appendicular skeleton consistent with multiple myeloma Follows with Heme Onc Dr Alicia Planned for Chemotherapy Revlimid and Dexamethasone , and Zometa every 4 weeks for lytic bone lesion /MM/hypercalcemia started on Acyclovir for prophylaxis while on Velcade has not started on Valcade /Revlimid infusion yet pt received IV Zometa infusion last Wednesday04/16/17 pt contacted Heme Onc Dr Escoto office with concern for Rt eye pain and possible side effect form Zometa pt was reassured -medication side effect was very unlikely Discussed with : check serum Viscosity level: pending H/O CAD S/P PTCA : S/p 3 stents to RCA in 2010 no complain of chest pain and sob continue Aspirin , Plavix , statin Dyslipidemia: Continue Lipitor 80 mg daily BPH : continue Flomax , Proscar Follows with as outpatient Code Status Full Code DVT Px: SCDs ambulate DISPOSITION : Plan to discharge home tomorrow if stable Follow up your physician Dr Ngo on 04/29/17 at 10:05 am Follow up with orbital specialist Dr. Edin Núñez at [facility] for further evaluation on 04/26/17 at 12:20pm Follow up with your Heme Oncologist in 1 week as advised Complete the antibiotic and prednisone course as prescribed Seek immediate medical attention if your symptoms reoccur or worsen PROCEDURES: Orbit MRI: 1. There is nonspecific stranding and patchy abnormal enhancement identified within the retrobulbar fat in the right orbit. The appearance is nonspecific and suggests an infectious or inflammatory process such cellulitis or optic perineuritis. Clinical correlation will be essential and follow-up with ophthalmology is recommended. 2. Faint inflammatory change is also suggested in the retrobulbar fat of the left orbit. 3. No enhancing mass or localized fluid collection is identified in either orbit. 4. The extraocular muscles are normal and symmetric. 5. There is no significant adjacent paranasal sinus disease. Total time spent on discharge = 33 minutes This includes examination of the patient, discharge planning, medication reconciliation, and communication with other providers. Discharge Instructions Discharge Instructions Date of Service Apr 24, 2017. Admission Reason for Admission: Right Eye Pain,Ptosis,Right Discharge Discharge Diagnosis / Problem: Nonspecific orbital inflammation, possible pseudotumor Discharge Goals Goal(s): Decrease discomfort, Improve function Activity Recommendations Activity Limitations: resume your previous activity Exercise/Sports Limitations: as tolerated Driving or Machine Use: Do not drive until cleared by your Physician . Instructions / Follow-Up Instructions / Follow-Up Follow up your physician Dr Ngo on 04/29/17 at 10:05 am Follow up with orbital specialist Dr. Edin Núñez at [facility] for further evaluation on 04/26/17 at 12:20pm Follow up with your Heme Oncologist in 1 week as advised Complete the antibiotic and prednisone course as prescribed Seek immediate medical attention if your symptoms reoccur or worsen Current Hospital Diet Patient's current hospital diet: AHA Diet (Heart Healthy) Discharge Diet Recommended Diet: AHA Diet (Heart Healthy) Pending Studies Studies pending at discharge: yes List of pending studies: Serum Viscosity level Medical Emergencies . Who to Call and When: Medical Emergencies: If at any time you feel your situation is an emergency, please call 911 immediately. . Non-Emergent Contact Non-Emergency issues call your: Primary Care Provider, [employer] Call Non-Emergent contact if: you have a fever, your pain is not controlled, your pain is worsening, your pain is unusual for you, your pain is concerning you, you have any medication questions Seek immediate medical attention if your symptoms reoccur or worsen . . "Provider Documentation" section prepared by Gregg Schmitz. . VTE Core Measure Inpt VTE Proph given/why not?: TAMRA Mullins's <Electronically signed by Gregg Schmitz MD> Signed: 04/24/17 0920 Signed: The status of this report is Signed * If report status is Draft, the document has not been finalized by the responsible provider.
[2017-04-24 09:42] VITALS: BP 115/65; PULSE 60; TEMP 36.5; O2SAT 97
[2017-04-25] MEDS ORDERED: VANCOMYCIN TROUGH ONE (11:30)
== END 2017-04-24 10:15 | disposition home or self-care (01) | DRG 125 ==
LOC: C.EDB 16:17 → C.4E 22:00 → ENRESERV 22:26
PROVIDERS: ADMIT Hospitalist; ATTEND Internal Medicine
DX: H05.111 Granuloma of right orbit (principal); C90.00 Multiple myeloma not having achieved remission; H02.401 Unspecified ptosis of right eyelid; I25.10 Atherosclerotic heart disease of native coronary artery without angina pectoris; E78.5 Hyperlipidemia, unspecified; I11.9 Hypertensive heart disease without heart failure; N40.0 Benign prostatic hyperplasia without lower urinary tract symptoms; K21.9 Gastro-esophageal reflux disease without esophagitis; Z79.899 Other long term (current) drug therapy; Z79.02 Long term (current) use of antithrombotics/antiplatelets; Z79.82 Long term (current) use of aspirin; Z95.5 Presence of coronary angioplasty implant and graft; Z82.49 Family history of ischemic heart disease and other diseases of the circulatory system; Z80.7 Family history of other malignant neoplasms of lymphoid, hematopoietic and related tissues

== ENCOUNTER 2022-06-13 18:16 | Observation (INO) ==
[2022-06-13 18:57] LABS: Basophils # (auto) 0.04 K/uL (0-0.2); Basophils % (auto) 0.8 %; Eosinophils # (auto) 0.17 K/uL (0-0.50); Eosinophils % (auto) 3.5 %; Hematocrit (blood only) 41.2 % (40.1-51.0); Hemoglobin 14.3 g/dl (14.0-18.0); Immature Granulocytes # (auto) 0.01 K/uL (0.00-0.02); Immature Granulocytes % (auto) 0.2 %; Lymphocytes # (auto) 0.45 K/uL (1.2-3.4); Lymphocytes % (auto) 9.3 %; Mean Corpuscular Hemoglobin 33.2 pg (25.0-34.0); Mean Corpuscular Hgb Conc 34.7 g/dL (32.0-36.0); Mean Corpuscular Volume 95.6 fL (80.0-100.0); Mean Platelet Volume 9.5 fL (9.4-12.4); Monocytes # (auto) 0.66 K/uL (0.24-0.82); Monocytes % (auto) 13.7 %; Neutrophils # (auto) 3.49 K/uL (1.4-6.5); Neutrophils % (auto) 72.5 %; Platelet Count 152 K/uL (130-400); RDW Coefficient of Variation 12.3 % (11.5-14.5); RDW Standard Deviation 43.2 fL (36.4-46.3); Red Blood Count 4.31 M/uL (4.63-6.08); White Blood Count 4.82 K/ul (4.8-10.8)
[2022-06-13 19:14] LABS: INR 1.1 (0.9-1.1); Partial Thromboplastin Time 26.2 Seconds (21.0-31.0); Prothrombin Time 11.4 Seconds (9.0-12.0)
--- NOTE | 2022-06-13 19:19 | XRay Report ---
XR chest 1V portable CLINICAL HISTORY: Chest pain, nonspecific TECHNIQUE: Single frontal radiograph of the chest was obtained. Comparison: Comparison is made to chest radiograph 07/10/2015 FINDINGS: No lines and tubes are seen. The cardiomediastinal silhouette is normal. The lungs are clear. No evid ence of pleural effusion or pneumothorax. IMPRESSION: No acute chest disease. ACT 112: Negative or not required by law. Electronically signed by: Jose Guzmán M.D. 06/13/2022 7:18 PM
[2022-06-13 19:24] LABS: Albumin Level 4.1 gm/dl (3.4-5.0); BUN Creatinine Ratio 10.8 (10-20); Bilirubin Direct 0.1 mg/dl (0-0.2); Bilirubin,Total 0.5 mg/dl (0.2-1.0); Calcium 9.8 mg/dl (8.5-10.1); Creatinine Clr Calc Pharmacy 55.7 ml/min; Est GFR (African American) 72.8 ml/min; Est GFR (Non-African American) 62.8 ml/min; Potassium 3.8 mmol/L (3.5-5.1); Total Protein 6.9 gm/dl (6.0-8.3)
[2022-06-13 19:29] LABS: Troponin I High Sensitivity 4.6 pg/ml (0-20)
--- NOTE | 2022-06-13 19:52 | Emergency Department Note ---
History of Present Illness General Chief complaint: Chest Pain Time Seen by Provider: 06/13/22 18:35 History of Present Illness Provider complaint: Chest pain Onset (ago): hour(s) (2.5) Location: chest Associated symptoms: + chest pain 77-year-old male presents emergency department for chest pain. Chest pain began at 4 PM today. He states that the pain started in his epigastric area and then radiated into his chest and into his back. He states he tried to take 2 Tums which did not help his pain. He states of 5:15 PM he took 1 sublingual nitroglycerin which resolved all of his discomfort. Patient was given aspirin 324 mg in route to the hospital. Patient denies any difficulty breathing. No nausea vomiting or diarrhea. No hematuria or dysuria. Home Medications Medication Instructions Recorded Confirmed Type aspirin 81 mg tablet,delayed 81 mg PO QPM 11/18/20 06/13/22 History release atorvastatin 80 mg tablet (Lipitor) 80 mg PO QPM 11/18/20 06/13/22 History calcium carbonate 600 mg-vitamin 1 cap PO DAILY 11/18/20 06/13/22 History D3 12.5 mcg (500 unit) capsule (Calcium 600 with Vitamin D3) clopidogrel 75 mg tablet (Plavix) 75 mg PO DAILY 11/18/20 06/13/22 History famotidine 20 mg tablet 20 mg PO DAILY 11/18/20 06/13/22 History multivitamin 1 tab PO DAILY 11/18/20 06/13/22 History tamsulosin 0.4 mg capsule (Flomax) 0.4 mg PO DAILY #90 caps 11/18/20 06/13/22 Rx denosumab 120 mg/1.7 mL (70 mg/mL) 0 mg subcut DIRECTED 06/13/22 06/13/22 History subcutaneous solution (Xgeva) nitroglycerin 0.4 mg sublingual 0.4 mg sublingual DIRECTED PRN 06/13/22 06/13/22 History tablet Chest Pain Allergies Allergy/AdvReac Type Severity Reaction Status Date / Time Penicillins Allergy Unknown "PASSED Unverified 06/13/22 20:24 OUT" mannitol [From Zometa] AdvReac split Verified 06/13/22 20:25 vission/head pressure water for injection,sterile AdvReac split Verified 06/13/22 20:25 [From Zometa] vission/head pressure zoledronic acid [From Zometa] AdvReac split Verified 06/13/22 20:25 vission/head pressure Past Med/Surg History Medical History CAD (coronary artery disease) "S/p 3 stents to RCA in 2010" GERD (gastroesophageal reflux disease) Heart attack History of diverticulosis HLD (hyperlipidemia) HTN (hypertension) Kidney stones Multiple myeloma No pertinent family history Skin cancer Surgical History No pertinent past surgical history Family History Mother Diabetes Social History Smoking Status: Never smoker Hx Alcohol Use: Yes marital status: current occupational status: retired Feels Safe at Home: Yes Physical Exam Vital Signs Vital Signs - 24 hr 06/13/22 18:29 06/13/22 19:00 06/13/22 20:01 Temperature 36.6 C Temperature Source Oral Pulse Rate 67 64 Pulse Rate from SpO2 Sensor 66 Pulse Rhythm Regular Pulse Strength Normal Respiratory Rate 20 22 Respiratory Effort / Characteristics Non-Labored Spontaneous Respiratory Depth Normal Respiratory Pattern Regular Blood Pressure 126/73 111/69 Blood Pressure Mean 90 83 Blood Pressure Position Semi-fowlers Pulse Oximetry 99 93 94 Oxygen Delivery Method Room Air Room Air Sepsis Recent Fever Within 48 Hours No Sepsis New/Unexplained Change in Mental Status N/A Sepsis Action Taken by Nursing No Action Required 06/13/22 20:00 06/13/22 21:00 Temperature Temperature Source Pulse Rate 62 62 Pulse Rate from SpO2 Sensor 64 Pulse Rhythm Pulse Strength Respiratory Rate 20 16 Respiratory Effort / Characteristics Respiratory Depth Respiratory Pattern Blood Pressure 117/71 103/58 L Blood Pressure Mean 86 73 Blood Pressure Position Pulse Oximetry 98 98 Oxygen Delivery Method Sepsis Recent Fever Within 48 Hours Sepsis New/Unexplained Change in Mental Status Sepsis Action Taken by Nursing Physical Exam GENERAL: He is oriented to person, place, and time. He appears well-developed and well-nourished. HENT: Exam performed. - Head: Normocephalic and atraumatic. EYES: Conjunctivae and EOM are normal. Right eye exhibits no discharge. Left eye exhibits no discharge. No scleral icterus. NECK: Normal range of motion. Neck supple. No JVD present. CV: Normal rate, regular rhythm, normal heart sounds and intact distal pulses. There is no peripheral edema. Palpable radial pulses bue. PULM/CHEST: Effort normal and breath sounds normal. No respiratory distress. No stridor. He has no wheezes. He has no rales. ABD: The abdomen is soft. There is no tenderness. NEURO: Motor and sensation grossly intact. SKIN: Skin is warm and dry. He is not diaphoretic. PSYCH: He has a normal mood and affect. Behavior is normal. Judgment and thought content normal. Course Course 1834: The patient was evaluated in room A10. A complete history and physical exam was performed Cardiac monitoring: An order was placed for continuous cardiac monitoring. The monitor shows a rate of 60 with sinus rhythm 1955: Vital signs stable. Labs and imaging within normal limits including negative EKG chest x-ray and troponin. Patient reported no chest x-ray at this time. Patient has moderate heart score. Patient was given option of inpatient observation versus outpatient follow-up with cardiology. Patient and family at bedside states he would like to stay for inpatient observation. [facility] HEART Score for Major Cardiac Events from [email or web address] on 06/13/2022 All calculations should be rechecked by clinician prior to use RESULT SUMMARY: 6 points Moderate Score (4-6 points) Risk of MACE of 12-16.6%. INPUTS: History > 2 = Highly suspicious EKG > 0 = Normal Age > 2 = >=5 Risk factors > 2 = >= risk factors or history of atherosclerotic disease Initial troponin > 0 = <=ormal limit Administered Medications Lactated Ringer's (Lr) 1,000 mls @ 100 mls/hr IV .Q10H STA Stop: 06/14/22 07:38 Last Admin: 06/13/22 22:06 Dose: 100 mls/hr Documented By: OLVIN Discontinued Medications Ioversol (Optiray 350 100ml) 84 ml IV ONCE ONE Stop: 06/13/22 21:58 Last Admin: 06/13/22 21:57 Dose: 84 ml Documented By: YUMI Medical Decision Making Laboratory Data Attestation: I reviewed the patient's lab results. 06/13/22 18:40 06/13/22 18:40 Lab Results 06/13/22 06/13/22 06/13/22 Range/Units 18:40 18:40 18:40 WBC 4.82 (4.8-10.8) K/ul RBC 4.31 L (4.63-6.08) M/uL Hgb 14.3 (14.0-18.0) g/dl Hct 41.2 (40.1-51.0) % MCV 95.6 (80.0-100.0) fL MCH 33.2 (25.0-34.0) pg MCHC 34.7 (32.0-36.0) g/dL RDW Std Deviation 43.2 (36.4-46.3) fL RDW Coeff of Priscila 12.3 (11.5-14.5) % Plt Count 152 (130-400) K/uL MPV 9.5 (9.4-12.4) fL Immature Gran % (Auto) 0.2 % Neut % (Auto) 72.5 % Lymph % (Auto) 9.3 % [place] % (Auto) 13.7 % Eos % (Auto) 3.5 % Baso % (Auto) 0.8 % Neut # (Auto) 3.49 (1.4-6.5) K/uL Lymph # (Auto) 0.45 L (1.2-3.4) K/uL [place] # (Auto) 0.66 (0.24-0.82) K/uL Eos # (Auto) 0.17 (0-0.50) K/uL Baso # (Auto) 0.04 (0-0.2) K/uL Immature Gran # (Auto) 0.01 (0.00-0.02) K/uL PT 11.4 (9.0-12.0) Seconds INR 1.1 (0.9-1.1) APTT 26.2 (21.0-31.0) Seconds PTT Ratio 1.0 Sodium 137 (136-145) mmol/L Potassium 3.8 (3.5-5.1) mmol/L Chloride 105 (98-107) mmol/L Carbon Dioxide 25 (21-32) mmol/L Anion Gap 7 (3-11) BUN 12 (6-23) mg/dl Creatinine 1.11 (0.6-1.4) mg/dl Est Cr Clr Drug Dosing 55.7 ml/min Est GFR ( Amer) 72.8 ml/min Est GFR (Non-Af Amer) 62.8 ml/min BUN/Creatinine Ratio 10.8 (10-20) Glucose 96 (70-99(Fasting)) mg/dl Calcium 9.8 (8.5-10.1) mg/dl Magnesium (1.7-2.4) mg/dl Total Bilirubin 0.5 (0.2-1.0) mg/dl Direct Bilirubin 0.1 (0-0.2) mg/dl AST 21 (13-39) U/L ALT 25 (7-52) U/L Alkaline Phosphatase 50 (34-104) U/L Troponin I High Sens 4.6 (0-20) pg/ml Total Protein 6.9 (6.0-8.3) gm/dl Albumin 4.1 (3.4-5.0) gm/dl Lipase 51 (11-82) U/L SARS-CoV-2, RNA, NAAT (NEGATIVE) 06/13/22 06/13/22 Range/Units 19:54 21:32 WBC (4.8-10.8) K/ul RBC (4.63-6.08) M/uL Hgb (14.0-18.0) g/dl Hct (40.1-51.0) % MCV (80.0-100.0) fL MCH (25.0-34.0) pg MCHC (32.0-36.0) g/dL RDW Std Deviation (36.4-46.3) fL RDW Coeff of Priscila (11.5-14.5) % Plt Count (130-400) K/uL MPV (9.4-12.4) fL Immature Gran % (Auto) % Neut % (Auto) % Lymph % (Auto) % [place] % (Auto) % Eos % (Auto) % Baso % (Auto) % Neut # (Auto) (1.4-6.5) K/uL Lymph # (Auto) (1.2-3.4) K/uL [place] # (Auto) (0.24-0.82) K/uL Eos # (Auto) (0-0.50) K/uL Baso # (Auto) (0-0.2) K/uL Immature Gran # (Auto) (0.00-0.02) K/uL PT (9.0-12.0) Seconds INR (0.9-1.1) APTT (21.0-31.0) Seconds PTT Ratio Sodium (136-145) mmol/L Potassium (3.5-5.1) mmol/L Chloride (98-107) mmol/L Carbon Dioxide (21-32) mmol/L Anion Gap (3-11) BUN (6-23) mg/dl Creatinine (0.6-1.4) mg/dl Est Cr Clr Drug Dosing ml/min Est GFR ( Amer) ml/min Est GFR (Non-Af Amer) ml/min BUN/Creatinine Ratio (10-20) Glucose (70-99(Fasting)) mg/dl Calcium (8.5-10.1) mg/dl Magnesium 1.7 (1.7-2.4) mg/dl Total Bilirubin (0.2-1.0) mg/dl Direct Bilirubin (0-0.2) mg/dl AST (13-39) U/L ALT (7-52) U/L Alkaline Phosphatase (34-104) U/L Troponin I High Sens 4.2 (0-20) pg/ml Total Protein (6.0-8.3) gm/dl Albumin (3.4-5.0) gm/dl Lipase (11-82) U/L SARS-CoV-2, RNA, NAAT NEGATIVE (NEGATIVE) Imaging Data Radiologist's Impression: Chest X-Ray 06/13/22 18:49 XR chest 1V portable CLINICAL HISTORY: Chest pain, nonspecific TECHNIQUE: Single frontal radiograph of the chest was obtained. Comparison: Comparison is made to chest radiograph 07/10/2015 FINDINGS: No lines and tubes are seen. The cardiomediastinal silhouette is normal. The lungs are clear. No evidence of pleural effusion or pneumothorax. IMPRESSION: No acute chest disease. ACT 112: Negative or not required by law. Electronically signed by: Jose Guzmán M.D. 06/13/2022 7:18 PM Abdomen/Pelvis CT 06/13/22 21:33 CT abd pelvis IV con only CLINICAL HISTORY: abd pain TECHNIQUE: Helical axial images of the abdomen and pelvis were obtained and displayed. Automated dose lowering techniques and/or adjustment according to patient size were utilized for this exam. This exam was performed with intraven ous contrast. CT DOSE: 285.29 mGy.cm COMPARISON: Comparison is made to CT abdomen pelvis 03/18/2017 FINDINGS: Lower chest: No acute abnormality. Liver: Unremarkable. No focal lesions are seen. Gallbladder and biliary tree: Cholelithiasis is seen with a few stones in the gallbladder neck. Trace pericholecystic fluid is seen. The gallbladder wall measures 3 mm in diameter. No intra- or extrahepatic biliary ductal dilation. Pancreas: Unremarkable, no focal lesions. Spleen: Unremarkable. Adrenals: Unremarkable. Kidneys and ureters: Renal cysts are seen. Bladder: Diffuse homogeneous wall thickening is seen. Reproductive organs: Unremarkable. Bowel: Diverticulosis is seen without evidence of diverticulitis. Lymph nodes Retroperitoneal: Unremarkable. Pelvic: Unremarkable. Mesenteric: Unremarkable. Peritoneum: Normal. Vessels: Atherosclerotic calcifications are seen. Abdominal wall: Unremarkable. Bones: Degenerative changes in the visualized spine. Intraosseous lipomas are noted along with degenerative changes. IMPRESSION: There is prominence of the gallbladder wall with mild pericholecystic fluid and a few stones. Findings are concerning for acute cholecystitis. ACT 112: Negative or not required by law. Electronically signed by: Jose Guzmán M.D. 06/13/2022 10:15 PM ECG Data Attestation: I personally reviewed and interpreted this ECG as follows: Indication: + chest pain Rate (beats per minute): 63 Rhythm: + normal sinus ECG Intervals/blocks: + Normal QRS, + Normal AK and + Normal QT-c ECG ST segments: + Normal ST segments MDM Narrative Vital signs stable. Labs and imaging within normal limits including negative EKG chest x-ray and troponin. Patient reported no chest x-ray at this time. Patient has moderate heart score. Patient was given option of inpatient observation versus outpatient follow-up with cardiology. Patient and family at bedside states he would like to stay for inpatient observation. [facility] HEART Score for Major Cardiac Events from [email or web address] on 06/13/2022 All calculations should be rechecked by clinician prior to use RESULT SUMMARY: 6 points Moderate Score (4-6 points) Risk of MACE of 12-16.6%. INPUTS: History > 2 = Highly suspicious EKG > 0 = Normal Age > 2 = >=5 Risk factors > 2 = >= risk factors or history of atherosclerotic disease Initial troponin > 0 = <=ormal limit Impression & Plan Chest pain Discharge Plan Visit Data Chief Complaint: Chest Pain ED Provider: Sammy Franklin Discharge Problem: Chest pain Patient Disposition: Being Evaluated by Hospitalist Discharge Instructions Interventions: ED Discharge Assessment Last Done: 06/13/22 22:42 Forms Stand Alone Forms: [facility] [employer] Prescriptions Prescriptions: No Action aspirin 81 mg tablet,delayed release (DR/EC) 81 mg PO QPM atorvastatin [Lipitor] 80 mg tablet 80 mg PO QPM clopidogrel [Plavix] 75 mg tablet 75 mg PO DAILY multivitamin Tablet 1 tab PO DAILY calcium carbonate-vitamin D3 [Calcium 600 with Vitamin D3] 600 mg(1,500mg) - 500 unit capsule 1 cap PO DAILY famotidine 20 mg tablet 20 mg PO DAILY tamsulosin [Flomax] 0.4 mg capsule 0.4 mg PO DAILY Qty: 90 3RF nitroglycerin 0.4 mg tablet, sublingual 0.4 mg sublingual DIRECTED PRN (Reason: Chest Pain) Xgeva 120 mg/1.7 mL (70 mg/mL) Solution 0 mg SUBCUT DIRECTED Referrals Referrals: Tacos Ngo MD [Primary Care Provider] - : Chest pain Qualifiers: Chest pain type: unspecified Qualified Code(s): R07.9 - Chest pain, unspecified
--- NOTE | 2022-06-13 21:16 | History & Physical Report ---
Date of Service June 13, 2022 Assessment & Plan (1) Chest pain: Plan: Atypical chest pain Rule out intra-abdominal pathology possible uncontrolled GERD Rule out ACS given nitroglycerin response, history CAD status post stent hypertension, stable hyperlipidemia, on statin Rx multiple myeloma status post Revlimid, patient receiving Xgeva every 3 months outpatient, currently in remission OBS PCU CT abdomen pelvis Follow troponin TTE, Cardiology consult Re: Atypical chest pain relieved by nitro, history CAD DVT prophylaxis per Lovenox subcu Full code Text document was generated using [employer] voice recognition software. It may contain grammatical or spelling errors. Kindly contact undersigned for clarification of any documentation item in question. ADDENDUM: CT abdomen pelvis results as follows: There is prominence of the gallbladder wall with mild pericholecystic fluid and a few stones. Findings are concerning for acute cholecystitis. MedSurg stepdown given noncardiac chest pain Cancel TTE and cardiology consultation. N.p.o. Ertapenem General Surgery consult for cholecystitis Hold patient Plavix in anticipation of surgery. History of Present Illness Chief Complaint: Epigastric pain going to the chest Primary Care Provider: Tacos Ngo MD Medical history significant for CAD sp stenting, asymptomatic bradycardia as per records, hypertension, hyperlipidemia, urolithiasis, multiple myeloma status post Revlimid, skin cancer sp post surgery. 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 Patient experience achy epigastric discomfort going to his lower chest and back this afternoon while eating Southern fried chicken. No fever, no chills, no SOB, no prior episodes. Discomfort relieved by Tums and nitroglycerin intake. Patient brought to the ER by family. MEDICAL HISTORY: As above. SURGICAL HISTORY: Hernia repair, knee surgery, urologic procedures, FAMILY HISTORY: Family history of heart disease, multiple myeloma, DM PERSONAL AND SOCIAL HISTORY: Nonsmoker, no chronic intake of alcoholic beverages, retired [employer] employee. Allergies Allergy/AdvReac Type Severity Reaction Status Date / Time Penicillins Allergy Unknown "PASSED Unverified 06/13/22 20:24 OUT" mannitol [From Zometa] AdvReac split Verified 06/13/22 20:25 vission/head pressure water for injection,sterile AdvReac split Verified 06/13/22 20:25 [From Zometa] vission/head pressure zoledronic acid [From Zometa] AdvReac split Verified 06/13/22 20:25 vission/head pressure Home Medications Medication Instructions Recorded Confirmed Type aspirin 81 mg tablet,delayed 81 mg PO QPM 11/18/20 06/13/22 History release atorvastatin 80 mg tablet (Lipitor) 80 mg PO QPM 11/18/20 06/13/22 History calcium carbonate 600 mg-vitamin 1 cap PO DAILY 11/18/20 06/13/22 History D3 12.5 mcg (500 unit) capsule (Calcium 600 with Vitamin D3) clopidogrel 75 mg tablet (Plavix) 75 mg PO DAILY 11/18/20 06/13/22 History famotidine 20 mg tablet 20 mg PO DAILY 11/18/20 06/13/22 History multivitamin 1 tab PO DAILY 11/18/20 06/13/22 History tamsulosin 0.4 mg capsule (Flomax) 0.4 mg PO DAILY #90 caps 11/18/20 06/13/22 Rx denosumab 120 mg/1.7 mL (70 mg/mL) 0 mg subcut DIRECTED 06/13/22 06/13/22 History subcutaneous solution (Xgeva) nitroglycerin 0.4 mg sublingual 0.4 mg sublingual DIRECTED PRN 06/13/22 06/13/22 History tablet Chest Pain Past Med/Surg History Medical History CAD (coronary artery disease) "S/p 3 stents to RCA in 2010" GERD (gastroesophageal reflux disease) Heart attack History of diverticulosis HLD (hyperlipidemia) HTN (hypertension) Kidney stones Multiple myeloma No pertinent family history Skin cancer Surgical History No pertinent past surgical history Family History Mother Diabetes Social History Smoking Status: Never smoker Hx Alcohol Use: Yes Alcohol type: beer Hx Substance Use: No Preferred Language: Swedish Communication Ability: Effective Financial Legal Assistant Required: No Beliefs That Will Affect Care: None marital status: Current Living Situation: Spouse current occupational status: retired Feels Safe at Home: Yes Safety Concerns: Feels Safe At This Time Assistive Devices: Glasses Review of Systems Review of Systems: As per HPI, all other systems reviewed and negative Physical Exam Physical Exam: GENERAL: Comfortable, pleasant, looks younger for stated age, no respiratory distress SKIN: Normal color, warm HEENT: Alopecia, [place] palpebral conjunctivae, no ptosis, dry buccal mucosa NECK : Supple, no tenderness CHEST : CTA, no tenderness HEART : RRR, no obvious murmurs ABDOMEN: Some distention, minimal epigastric tenderness EXTREMITIES : No LE swelling/tenderness, no other conspicuous deformities noted NEUROLOGIC : Coherent, no facial asymmetry, no other gross focality Results & Data Results & Data ([facility]) Vital Signs (Past 12 Hours) Vital Signs Temp Pulse Resp BP Pulse Ox O2 Del Method 06/13/22 20:00 62 20 117/71 98 06/13/22 20:01 94 Room Air 06/13/22 19:00 64 22 111/69 93 06/13/22 18:29 36.6 C 67 20 126/73 99 Room Air Laboratory Results Laboratory Results WBC 4.82 K/ul (4.8-10.8) 06/13/22 18:40 RBC 4.31 M/uL (4.63-6.08) L 06/13/22 18:40 Hgb 14.3 g/dl (14.0-18.0) 06/13/22 18:40 Hct 41.2 % (40.1-51.0) 06/13/22 18:40 MCV 95.6 fL (80.0-100.0) 06/13/22 18:40 MCH 33.2 pg (25.0-34.0) 06/13/22 18:40 MCHC 34.7 g/dL (32.0-36.0) 06/13/22 18:40 RDW Std Deviation 43.2 fL (36.4-46.3) 06/13/22 18:40 RDW Coeff of Priscila 12.3 % (11.5-14.5) 06/13/22 18:40 Plt Count 152 K/uL (130-400) 06/13/22 18:40 MPV 9.5 fL (9.4-12.4) 06/13/22 18:40 Immature Gran % (Auto) 0.2 % 06/13/22 18:40 Neut % (Auto) 72.5 % 06/13/22 18:40 Lymph % (Auto) 9.3 % 06/13/22 18:40 [place] % (Auto) 13.7 % 06/13/22 18:40 Eos % (Auto) 3.5 % 06/13/22 18:40 Baso % (Auto) 0.8 % 06/13/22 18:40 Neut # (Auto) 3.49 K/uL (1.4-6.5) 06/13/22 18:40 Lymph # (Auto) 0.45 K/uL (1.2-3.4) L 06/13/22 18:40 [place] # (Auto) 0.66 K/uL (0.24-0.82) 06/13/22 18:40 Eos # (Auto) 0.17 K/uL (0-0.50) 06/13/22 18:40 Baso # (Auto) 0.04 K/uL (0-0.2) 06/13/22 18:40 Immature Gran # (Auto) 0.01 K/uL (0.00-0.02) 06/13/22 18:40 PT 11.4 Seconds (9.0-12.0) 06/13/22 18:40 INR 1.1 (0.9-1.1) 06/13/22 18:40 APTT 26.2 Seconds (21.0-31.0) 06/13/22 18:40 PTT Ratio 1.0 06/13/22 18:40 Sodium 137 mmol/L (136-145) 06/13/22 18:40 Potassium 3.8 mmol/L (3.5-5.1) 06/13/22 18:40 Chloride 105 mmol/L (98-107) 06/13/22 18:40 Carbon Dioxide 25 mmol/L (21-32) 06/13/22 18:40 Anion Gap 7 (3-11) 06/13/22 18:40 BUN 12 mg/dl (6-23) 06/13/22 18:40 Creatinine 1.11 mg/dl (0.6-1.4) 06/13/22 18:40 Est Cr Clr Drug Dosing 55.7 ml/min 06/13/22 18:40 Est GFR ( Amer) 72.8 ml/min 06/13/22 18:40 Est GFR (Non-Af Amer) 62.8 ml/min 06/13/22 18:40 BUN/Creatinine Ratio 10.8 (10-20) 06/13/22 18:40 Glucose 96 mg/dl (70-99(Fasting)) 06/13/22 18:40 Calcium 9.8 mg/dl (8.5-10.1) 06/13/22 18:40 Total Bilirubin 0.5 mg/dl (0.2-1.0) 06/13/22 18:40 Direct Bilirubin 0.1 mg/dl (0-0.2) 06/13/22 18:40 AST 21 U/L (13-39) 06/13/22 18:40 ALT 25 U/L (7-52) 06/13/22 18:40 Alkaline Phosphatase 50 U/L (34-104) 06/13/22 18:40 Troponin I High Sens 4.6 pg/ml (0-20) 06/13/22 18:40 Total Protein 6.9 gm/dl (6.0-8.3) 06/13/22 18:40 Albumin 4.1 gm/dl (3.4-5.0) 06/13/22 18:40 Lipase 51 U/L (11-82) 06/13/22 18:40 SARS-CoV-2, RNA, NAAT NEGATIVE (NEGATIVE) 06/13/22 19:54 Impressions Chest X-Ray 06/13/22 18:49 XR chest 1V portable CLINICAL HISTORY: Chest pain, nonspecific TECHNIQUE: Single frontal radiograph of the chest was obtained. Comparison: Comparison is made to chest radiograph 07/10/2015 FINDINGS: No lines and tubes are seen. The cardiomediastinal silhouette is normal. The lungs are clear. No evidence of pleural effusion or pneumothorax. IMPRESSION: No acute chest disease. ACT 112: Negative or not required by law. Electronically signed by: Jose Guzmán M.D. 06/13/2022 7:18 PM Diagnostic Findings EKG as per my interpretation : Rate 60, NSR, normal axis, no ischemia (1) Chest pain Chest pain type: unspecified Qualified Code(s): R07.9 - Chest pain, unspecified
[2022-06-13] MEDS ORDERED: LACTATED RINGER'S 1,000 ML IV STA (21:39)
[2022-06-13] MEDS ORDERED: OPTIRAY 350 100ml IV ONE (21:57)
[2022-06-13 22:07] LABS: Magnesium 1.7 mg/dl (1.7-2.4)
[2022-06-13 22:14] LABS: Troponin I High Sensitivity 4.2 pg/ml (0-20)
--- NOTE | 2022-06-13 22:17 | CT Scan Report ---
CT abd pelvis IV con only CLINICAL HISTORY: abd pain TECHNIQUE: Helical axial images of the abdomen and pelvis were obtained and displayed. Automated dose lowering techniques and/or adjustment according to patient size were utilized for this exam. This e xam was performed with intravenous contrast. CT DOSE: 285.29 mGy.cm COMPARISON: Comparison is made to CT abdomen pelvis 03/18/2017 FINDINGS: Lower chest: No acute abnormality. Liver: Unremarkable. No focal lesions are seen. Gallbladder and biliary tree: Cholelithiasis is seen with a few stones in the gallbladder neck. Trace pericholecystic fluid is seen. The gallbladder wall measures 3 mm in diameter. No intra- or extrahep atic biliary ductal dilation. Pancreas: Unremarkable, no focal lesions. Spleen: Unremarkable. Adrenals: Unremarkable. Kidneys and ureters: Renal cysts are seen. Bladder: Diffuse homogeneous wall thickening is seen. Reproductive organs: Unremarkable. Bowel: Diverticulosis is seen without evidence of diverticulitis. Lymph nodes Retroperitoneal: Unremarkable. Pelvic: Unremarkable. Mesenteric: Unremarkable. Peritoneum: Normal. Vessels: Atherosclerotic calcifications are seen. Abdominal wall: Unremarkable. Bones: Degenerative changes in the visualized spine. Intraosseous lipomas are noted along with degene rative changes. IMPRESSION: There is prominence of the gallbladder wall with mild pericholecystic fluid and a few stones. Finding s are concerning for acute cholecystitis. ACT 112: Negative or not required by law. Electronically signed by: Jose Guzmán M.D. 06/13/2022 10:15 PM
[2022-06-13] MEDS ORDERED: NITROGLYCERIN SL 0.4 MG/TAB TAB SL PRN (23:03)
[2022-06-13] MEDS ORDERED: PROMETHAZINE HCL 12.5 MG in SODIUM CHLORIDE 0.9% 50 ML IV PRN (23:03)
[2022-06-13] MEDS ORDERED: traMADol HCL 50 MG TABLET PO PRN (23:03)
[2022-06-13] MEDS ORDERED: MoRPHine SULFATE 4 MG/ML 1 ML CARP\\VIAL IV PRN (23:03)
[2022-06-14] MEDS ORDERED: KETOROLAC TROMETHAMINE 15 MG/ML VIAL IV ONE (00:07)
[2022-06-14] MEDS: LACTATED RINGER'S 1,000 ML IV SCH ×3 (00:13→18:43)
[2022-06-14] MEDS: ASPIRIN 81 MG ECTAB PO SCH ×2 (00:15→20:06)
[2022-06-14] MEDS: ERTAPENEM SODIUM 1,000 MG in SYRINGE 0 ML IV SCH ×2 (00:15→23:41)
[2022-06-14 03:41] LABS: Basophils # (auto) 0.02 K/uL (0-0.2); Basophils % (auto) 0.2 %; Eosinophils # (auto) 0.02 K/uL (0-0.50); Eosinophils % (auto) 0.2 %; Hematocrit (blood only) 38.9 % (40.1-51.0); Hemoglobin 13.7 g/dl (14.0-18.0); Immature Granulocytes # (auto) 0.01 K/uL (0.00-0.02); Immature Granulocytes % (auto) 0.1 %; Lymphocytes # (auto) 0.33 K/uL (1.2-3.4); Lymphocytes % (auto) 3.6 %; Mean Corpuscular Hemoglobin 33.4 pg (25.0-34.0); Mean Corpuscular Hgb Conc 35.2 g/dL (32.0-36.0); Mean Corpuscular Volume 94.9 fL (80.0-100.0); Mean Platelet Volume 9.1 fL (9.4-12.4); Monocytes % (auto) 9.9 %; Platelet Count 127 K/uL (130-400); RDW Coefficient of Variation 12.5 % (11.5-14.5); RDW Standard Deviation 43.8 fL (36.4-46.3); White Blood Count 9.08 K/ul (4.8-10.8)
--- NOTE | 2022-06-14 06:15 | Surgery Consultation ---
Date of Consultation June 14, 2022 Assessment & Plan (1) Acute cholecystitis: Patient with evidence of stones in his gallbladder and thickened gallbladder on CT scan Consistent with acute cholecystitis His white count, vital signs, and liver functions are normal I do not believe he has necrotizing cholecystitis but should proceed at some point with laparoscopic cholecystectomy Because of his Plavix we will wait 1 to 2 days in this situation-we will consider OR tomorrow/Wednesday He can at least have clear liquids from a surgical standpoint History of Present Illness Attending Physician: Gregg Schmitz MD History of Present Illness 77-year-old male with epigastric and lower chest pain with a history of cardiac disease He underwent CT scan which showed an edematous gallbladder with gallstones some near the neck of the gallbladder This is likely acute cholecystitis The patient is on Plavix for his coronary disease Allergies Allergy/AdvReac Type Severity Reaction Status Date / Time Penicillins Allergy Unknown "PASSED Unverified 06/13/22 20:24 OUT" mannitol [From Zometa] AdvReac split Verified 06/13/22 20:25 vission/head pressure water for injection,sterile AdvReac split Verified 06/13/22 20:25 [From Zometa] vission/head pressure zoledronic acid [From Zometa] AdvReac split Verified 06/13/22 20:25 vission/head pressure Home Medications Medication Instructions Recorded Confirmed Type aspirin 81 mg tablet,delayed 81 mg PO QPM 11/18/20 06/13/22 History release atorvastatin 80 mg tablet (Lipitor) 80 mg PO QPM 11/18/20 06/13/22 History calcium carbonate 600 mg-vitamin 1 cap PO DAILY 11/18/20 06/13/22 History D3 12.5 mcg (500 unit) capsule (Calcium 600 with Vitamin D3) clopidogrel 75 mg tablet (Plavix) 75 mg PO DAILY 11/18/20 06/13/22 History famotidine 20 mg tablet 20 mg PO DAILY 11/18/20 06/13/22 History multivitamin 1 tab PO DAILY 11/18/20 06/13/22 History tamsulosin 0.4 mg capsule (Flomax) 0.4 mg PO DAILY #90 caps 11/18/20 06/13/22 Rx denosumab 120 mg/1.7 mL (70 mg/mL) 0 mg subcut DIRECTED 06/13/22 06/13/22 History subcutaneous solution (Xgeva) nitroglycerin 0.4 mg sublingual 0.4 mg sublingual DIRECTED PRN 06/13/22 History tablet Chest Pain Patient History Medical History CAD (coronary artery disease) "S/p 3 stents to RCA in 2010" GERD (gastroesophageal reflux disease) Heart attack History of diverticulosis HLD (hyperlipidemia) HTN (hypertension) Kidney stones Multiple myeloma No pertinent family history Skin cancer Surgical History No pertinent past surgical history Family History Mother Diabetes Social History Smoking Status: Never smoker Hx Alcohol Use: Yes Alcohol type: beer Hx Substance Use: No Preferred Language: Luxembourgish Communication Ability: Effective Chinese Herbalist Required: No Beliefs That Will Affect Care: None marital status: Current Living Situation: Spouse current occupational status: retired Feels Safe at Home: Yes Safety Concerns: Feels Safe At This Time Assistive Devices: Glasses Review of Systems Review of Systems: All systems reviewed & are unremarkable except as noted in HPI & below Physical Exam Physical Exam: Patient is awake and alert in no distress His abdomen is soft he has minimal tenderness Constitutional: well developed and well nourished; no acute distress Eyes: + anicteric sclerae Respiratory: normal respiratory effort; no respiratory distress Cardiovascular: Rate/Rhythm: regular rate Gastrointestinal (Abdomen): Inspection/Auscultation: abdomen not distended Percussion/Palpation: abdomen soft See above Musculoskeletal: Head/Neck/Chest: head atraumatic Skin: no rashes, warm and dry Neurologic: awake Psychiatric: Orientation: alert Results & Data ([facility]) Vital Signs (Past 12 Hours) Vital Signs Temp Pulse Resp BP BP Pulse Ox O2 Del Method 06/14/22 00:01 19 123/81 99 Room Air 06/13/22 22:53 36.8 C 19 165/84 H 98 Room Air 06/13/22 21:00 62 16 103/58 L 98 06/13/22 20:00 62 20 117/71 98 06/13/22 20:01 94 Room Air 06/13/22 19:00 64 22 111/69 93 06/13/22 18:29 36.6 C 67 20 126/73 99 Room Air Laboratory Results I reviewed his laboratories Diagnostic Findings I reviewed his CT films and report PG Care Time/CCT Total # of Minutes Spent Total Time Spent with Patient: Total time spent is greater than 50% in coordination of care (as documented) at patient's floor/unit and/or counseling patient: Coding Level of Care Code 64161 INT INP/OBS CARE MIN Diagnoses Acute cholecystitis K81.0
[2022-06-14 07:01] LABS: Appearance Urine Clear (Clear); Bilirubin Urine Negative (Negative); Blood Urine Negative (Negative); Color Urine Dark Yellow; Glucose Urine UA Negative (Negative); Ketones Urine Trace (Negative); Leukocyte Esterase Urine Negative (Negative); Nitrite Urine Negative (Negative); Protein Urine Negative (Negative); Specific Gravity Urine > 1.045 (1.000-1.030); Urobilinogen Urine Negative (Negative)
[2022-06-14] MEDS ORDERED: CLOPIDOGREL BISULFATE 75 MG TAB PO SCH (09:00)
[2022-06-14] MEDS ORDERED: ENOXAPARIN INJ 40 MG/0.4 ML SYR SQ SCH (09:00)
[2022-06-14] MEDS: FAMOTIDINE 20 MG TAB PO SCH (09:02)
[2022-06-14] MEDS: TAMSULOSIN HCL 0.4 MG CAP PO SCH (09:03)
[2022-06-14] MEDS: MULTIVITAMIN TAB PO SCH (09:03)
--- NOTE | 2022-06-14 13:52 | Hospitalist Progress Note ---
Date of Service June 14, 2022 Assessment & Plan (1) Acute cholecystitis: Plan: Acute cholecystitis Cholelithiasis --CT ABD:There is prominence of the gallbladder wall with mild pericholecystic fluid and a few stones. Findings are concerning for acute cholecystitis. Plavix held Continue IV ertapenem Also on IV fluids Pain control Tolerating clear liquid diet Appreciate surgical input Atypical chest pain CAD Secondary to above Continue home medications Plavix held as planned for surgery Monitor Hyperlipidemia On statin Multiple myeloma S/P Revlimid Receiving Xgeva every 3 months outpatient currently in remission DVT Px: Lovenox SQ Code Status Full Code Admission and Anticipated Discharge Date Admission Date: June 14, 2022 Subjective Patient is seen and examined at bedside States abdominal pain is better Tolerating liquid diet Denies any chest pain, dyspnea, dizziness, nausea No other complaints Review of Systems Review of Systems: All systems reviewed & are unremarkable except as noted in Subjective Physical Exam Physical Exam: Physical Exam: Vitals signs as noted above General Appearance:Moderately built and nourished, no apparent distress Head: normocephalic, Atraumatic Eyes: normal inspection, EOMI Neck: supple, Trachea midline Respiratory/Chest: Normal breath sounds, CTA, No accessory muscle use Cardiovascular: S1, S2, No murmur Abdomen/GI:Soft, RUQ tender, Bowel sounds present Extremities/Musculoskeletal:normal inspection, no edema Neurologic/Psych:AAOX3, grossly no focal neurological deficits Skin: normal color, warm Results & Data Results & Data ([facility]) Vital Signs (Past 12 Hours) Vital Signs Temp Pulse Resp BP Pulse Ox O2 Del Method 06/14/22 08:30 36.9 C 77 16 135/71 96 Room Air Laboratory Results Short CBC 06/13/22 06/14/22 Range/Units 18:40 03:23 WBC 4.82 9.08 (4.8-10.8) K/ul Hgb 14.3 13.7 L (14.0-18.0) g/dl Hct 41.2 38.9 L (40.1-51.0) % Plt Count 152 127 L (130-400) K/uL BMP 06/13/22 18:40 Sodium 137 Potassium 3.8 Chloride 105 Carbon Dioxide 25 BUN 12 Creatinine 1.11 Glucose 96 Calcium 9.8 Liver Function 06/13/22 Range/Units 18:40 Total Bilirubin 0.5 (0.2-1.0) mg/dl Direct Bilirubin 0.1 (0-0.2) mg/dl AST 21 (13-39) U/L ALT 25 (7-52) U/L Alkaline Phosphatase 50 (34-104) U/L Albumin 4.1 (3.4-5.0) gm/dl Urine 06/14/22 Range/Units 06:08 Urine Color Dark Yellow Urine Appearance Clear (Clear) Urine pH 5.0 (4.5-7.5) Ur Specific [place] > 1.045 H (1.000-1.030) Urine Protein Negative (Negative) Urine Glucose (UA) Negative (Negative)
[2022-06-14] MEDS: ACETAMINOPHEN 325 MG TAB PO PRN (18:45)
[2022-06-14] MEDS: ATORVASTATIN 40 MG TAB PO SCH (20:06)
--- NOTE | 2022-06-14 22:11 | Electrocardiogram Report ---
Test Reason : Blood Pressure : / mmHG Vent. Rate : 063 BPM Atrial Rate : 063 BPM P-R Int : 170 ms QRS Dur : 094 ms QT Int : 376 ms P-R-T Axes : 052 -08 053 degrees QTc Int : 384 ms Normal sinus rhythm Inferior infarct , age undetermined Possible Anterior infarct , age undetermined Abnormal ECG When compared with ECG of 21-APR-2017 17:39, No significant change was found Confirmed by Cordell Lopez ([id number]) on 06/14/2022 10:11:02 PM Referred By: REFERRED SELF Confirmed By:Cordell Lopez
[2022-06-15] MEDS: LACTATED RINGER'S 1,000 ML IV SCH ×2 (05:22→16:25)
[2022-06-15 06:15] LABS: Hematocrit (blood only) 35.5 % (40.1-51.0); Hemoglobin 12.1 g/dl (14.0-18.0); Mean Corpuscular Hemoglobin 32.5 pg (25.0-34.0); Mean Corpuscular Hgb Conc 34.1 g/dL (32.0-36.0); Mean Corpuscular Volume 95.4 fL (80.0-100.0); Mean Platelet Volume 9.5 fL (9.4-12.4); Platelet Count 114 K/uL (130-400); RDW Standard Deviation 46.2 fL (36.4-46.3); Red Blood Count 3.72 M/uL (4.63-6.08); White Blood Count 5.95 K/ul (4.8-10.8)
[2022-06-15 06:47] LABS: Albumin Globulin Ratio 1.3 (0.9-2); Albumin Level 3.2 gm/dl (3.4-5.0); Bilirubin Direct 0.2 mg/dl (0-0.2); Bilirubin,Total 1.1 mg/dl (0.2-1.0); Calcium 8.5 mg/dl (8.5-10.1); Creatinine Clr Calc Pharmacy 59.9 ml/min; Est GFR (African American) 82.6 ml/min; Est GFR (Non-African American) 71.3 ml/min; Globulin 2.4 gm/dl (2.5-4.0); Magnesium 1.6 mg/dl (1.7-2.4); Total Protein 5.6 gm/dl (6.0-8.3)
[2022-06-15] MEDS: FAMOTIDINE 20 MG TAB PO SCH (08:52)
[2022-06-15] MEDS: MULTIVITAMIN TAB PO SCH (08:52)
[2022-06-15] MEDS ORDERED: MoRPHine SULFATE 4 MG/ML 1 ML CARP\\VIAL IV PRN (09:28)
--- NOTE | 2022-06-15 09:41 | Surgery Progress Note ---
Date of Service June 15, 2022 Assessment & Plan (1) Acute cholecystitis: Plan: We have held patient's Plavix Plan is to proceed with laparoscopic cholecystectomy tomorrow morning Continue IV antibiotics and clear liquids today N.p.o. after midnight Admission and Anticipated Discharge Date Admission Date: June 14, 2022 Subjective Patient's vital signs are stable He does have some right upper quadrant pain but he is not taking any narcotics He is on clear liquids Review of Systems Review of Systems: All systems reviewed & are unremarkable except as noted in HPI & below Physical Exam Physical Exam: Patient is in no distress Constitutional: well developed and well nourished; no acute distress Eyes: + anicteric sclerae Respiratory: normal respiratory effort; no respiratory distress Cardiovascular: Rate/Rhythm: regular rate Gastrointestinal (Abdomen): Inspection/Auscultation: abdomen not distended Percussion/Palpation: abdomen soft See above Musculoskeletal: Head/Neck/Chest: head atraumatic Skin: no rashes, warm and dry Neurologic: awake Psychiatric: Orientation: alert Results & Data ([facility]) Vital Signs (Past 12 Hours) Vital Signs Temp Pulse Pulse Resp BP Pulse Ox O2 Del Method 06/15/22 07:46 37.1 C 70 17 110/68 94 Room Air 06/14/22 22:16 36.9 C 69 16 109/64 95 Room Air PG Care Time/CCT Total # of Minutes Spent Total Time Spent with Patient: Total time spent is greater than 50% in coordination of care (as documented) at patient's floor/unit and/or counseling patient: Coding Level of Care Code 22107 SUB INP/OBS CARE 1/25MIN Diagnoses Acute cholecystitis K81.0
[2022-06-15] MEDS: TAMSULOSIN HCL 0.4 MG CAP PO SCH (10:11)
[2022-06-15] MEDS: MAGNESIUM CHLORIDE W/CALCIUM 64MG DELAYED REL TAB PO SCH ×2 (11:13→21:05)
--- NOTE | 2022-06-15 18:01 | Hospitalist Progress Note ---
Date of Service June 15, 2022 Assessment & Plan (1) Acute cholecystitis: Plan: Acute cholecystitis Cholelithiasis --CT ABD:There is prominence of the gallbladder wall with mild pericholecystic fluid and a few stones. Findings are concerning for acute cholecystitis. Plavix held Continue IV ertapenem Also on IV fluids Pain control Tolerating clear liquid diet Appreciate surgical input N.p.o. after midnight for laparoscopic cholecystectomy tomorrow Atypical chest pain CAD Secondary to above Continue home medications Plavix held as planned for surgery Monitor Hyperlipidemia On statin Multiple myeloma S/P Revlimid Receiving Xgeva every 3 months outpatient currently in remission DVT Px: SCDs Code Status Full Code Admission and Anticipated Discharge Date Admission Date: June 14, 2022 Subjective Patient is seen and examined at bedside No new complaints Abdominal pain same as yesterday Denies any chest pain, dyspnea, dizziness, nausea Review of Systems Review of Systems: All systems reviewed & are unremarkable except as noted in Subjective Physical Exam Physical Exam: Physical Exam: Vitals signs as noted above General Appearance:Moderately built and nourished, no apparent distress Head: normocephalic, Atraumatic Eyes: normal inspection, EOMI Neck: supple, Trachea midline Respiratory/Chest: Normal breath sounds, CTA, No accessory muscle use Cardiovascular: S1, S2, No murmur Abdomen/GI:Soft, RUQ tender, Bowel sounds present Extremities/Musculoskeletal:normal inspection, no edema Neurologic/Psych:AAOX3, grossly no focal neurological deficits Skin: normal color, warm Results & Data Results & Data ([facility]) Vital Signs (Past 12 Hours) Vital Signs Temp Pulse Pulse Resp BP BP Pulse Ox 06/15/22 15:06 36.6 C 66 16 129/75 97 06/15/22 11:50 36.4 C L 69 18 127/71 97 06/15/22 07:46 37.1 C 70 17 110/68 94 O2 Del Method 06/15/22 15:06 Room Air 06/15/22 11:50 Room Air 06/15/22 07:46 Room Air Laboratory Results Short CBC 06/15/22 Range/Units 05:58 WBC 5.95 (4.8-10.8) K/ul Hgb 12.1 L (14.0-18.0) g/dl Hct 35.5 L (40.1-51.0) % Plt Count 114 L (130-400) K/uL BMP 06/15/22 06/15/22 05:58 05:58 Sodium Cancelled 137 Potassium Cancelled 4.0 Chloride Cancelled 107 Carbon Dioxide Cancelled 28 BUN Cancelled 9 Creatinine Cancelled 1.00 Glucose Cancelled 105 H Calcium Cancelled 8.5 Liver Function 06/15/22 Range/Units 05:58 Total Bilirubin 1.1 H D (0.2-1.0) mg/dl Direct Bilirubin 0.2 (0-0.2) mg/dl AST 31 (13-39) U/L ALT 59 H (7-52) U/L Alkaline Phosphatase 47 (34-104) U/L Albumin 3.2 L (3.4-5.0) gm/dl
[2022-06-15] MEDS: ASPIRIN 81 MG ECTAB PO SCH (21:06)
[2022-06-15] MEDS: ATORVASTATIN 40 MG TAB PO SCH (21:06)
[2022-06-15] MEDS: ERTAPENEM SODIUM 1,000 MG in SYRINGE 0 ML IV SCH (21:08)
[2022-06-16] MEDS: LACTATED RINGER'S 1,000 ML IV SCH ×2 (01:41→18:13)
--- NOTE | 2022-06-16 06:36 | History & Physical Bridge Note ---
Date of Service June 16, 2022 History & Physical Bridge Note I have examined the patient, reviewed the History & Physical and in the interval since the performance of the History & Physical I have noted the following changes of clinical significance: no changes noted
[2022-06-16 06:40] LABS: Hematocrit (blood only) 34.7 % (40.1-51.0); Mean Corpuscular Hemoglobin 32.8 pg (25.0-34.0); Mean Corpuscular Hgb Conc 34.6 g/dL (32.0-36.0); Mean Corpuscular Volume 94.8 fL (80.0-100.0); Mean Platelet Volume 9.8 fL (9.4-12.4); Platelet Count 115 K/uL (130-400); RDW Coefficient of Variation 12.8 % (11.5-14.5); RDW Standard Deviation 45.1 fL (36.4-46.3); Red Blood Count 3.66 M/uL (4.63-6.08); White Blood Count 3.84 K/ul (4.8-10.8)
--- NOTE | 2022-06-16 06:56 | Anesthesiology Consultation ---
Date of Service June 16, 2022 Assessment & Plan (1) Encounter for pre-operative examination: Chart Review Chart Review: Acceptable Risk for Surgery and Patient NOT seen in Pre Admission Testing Consults Requested none History Surgery Operation Date: 06/16/22 09:05 Proposed Procedures p Laparoscopic Cholecystectomy - Eros Santana MD, FACS Height/Weight Height: 5 ft 9 in Weight: 75.8 kg Allergies Allergy/AdvReac Type Severity Reaction Status Date / Time Penicillins Allergy Unknown "PASSED Unverified 06/13/22 20:24 OUT" mannitol [From Zometa] AdvReac split Verified 06/13/22 20:25 vission/head pressure water for injection,sterile AdvReac split Verified 06/13/22 20:25 [From Zometa] vission/head pressure zoledronic acid [From Zometa] AdvReac split Verified 06/13/22 20:25 vission/head pressure Medications Home Medications Medication Instructions Recorded Confirmed Last Taken aspirin 81 mg tablet,delayed 81 mg PO QPM 11/18/20 06/13/22 Unknown release atorvastatin 80 mg tablet (Lipitor) 80 mg PO QPM 11/18/20 06/13/22 Unknown calcium carbonate 600 mg-vitamin 1 cap PO DAILY 11/18/20 06/13/22 Unknown D3 12.5 mcg (500 unit) capsule (Calcium 600 with Vitamin D3) clopidogrel 75 mg tablet (Plavix) 75 mg PO DAILY 11/18/20 06/13/22 06/13/22 09:00 famotidine 20 mg tablet 20 mg PO DAILY 11/18/20 06/13/22 06/12/22 09:00 multivitamin 1 tab PO DAILY 11/18/20 06/13/22 Unknown tamsulosin 0.4 mg capsule (Flomax) 0.4 mg PO DAILY #90 caps 11/18/20 06/13/22 Unknown denosumab 120 mg/1.7 mL (70 mg/mL) 0 mg subcut DIRECTED 06/13/22 06/13/22 Unknown subcutaneous solution (Xgeva) nitroglycerin 0.4 mg sublingual 0.4 mg sublingual DIRECTED PRN 06/13/22 06/13/22 Unknown tablet Chest Pain Active Medications Generic Name Dose Route Start Last Admin Trade Name Freq PRN Reason Stop Dose Admin Acetaminophen 650 mg 06/13/22 23:03 06/14/22 18:45 Acetaminophen 325 Mg Tab PO 07/13/22 23:02 650 mg Q4H PRN Administration Pain or Fever Aspirin 81 mg 06/13/22 23:03 06/15/22 21:06 Aspirin 81 Mg Ectab PO 07/13/22 23:02 81 mg QPM MANOJ Administration Atorvastatin Calcium 80 mg 06/14/22 21:00 06/15/22 21:06 Atorvastatin 40 Mg Tab PO 07/14/22 20:59 80 mg QPM MANOJ Administration Famotidine 20 mg 06/14/22 09:00 06/15/22 08:52 Famotidine 20 Mg Tab PO 07/14/22 08:59 20 mg DAILY MANOJ Administration Lactated Ringer's 1,000 mls @ 100 mls/hr 06/13/22 23:30 06/16/22 01:41 Lr IV 07/13/22 23:29 100 mls/hr .Q10H MANOJ Administration Ertapenem 1,000 mg/ Syringe 10 mls @ 2 mls/min 06/14/22 00:00 06/15/22 21:08 IV 06/24/22 00:00 2 mls/min Q24H MANOJ Administration Magnesium Chloride 64 mg 06/15/22 09:30 06/15/22 21:05 Magnesium Chloride W/Calcium 64mg Delayed Rel Tab PO 07/15/22 09:29 64 mg BID MANOJ Administration Multivitamins 1 tab 06/14/22 09:00 06/15/22 08:52 Multivitamin Tab PO 07/14/22 08:59 1 tab QAM MANOJ Administration Tamsulosin HCl 0.4 mg 06/14/22 09:00 06/15/22 10:11 Tamsulosin Hcl 0.4 Mg Cap PO 07/14/22 08:59 Not Given DAILY MANOJ Past Medical History Medical History Anemia CAD (coronary artery disease) "S/p 3 stents to RCA in 2010" GERD (gastroesophageal reflux disease) Heart attack History of diverticulosis HLD (hyperlipidemia) HTN (hypertension) Kidney stones Multiple myeloma No pertinent family history Skin cancer Past Family History Family History Mother Diabetes Past Surgical History Surgical History No pertinent past surgical history Social History Smoking Status: Never smoker Hx Alcohol Use: Yes Alcohol type: beer alcohol intake frequency: holidays/special occasions only Hx Substance Use: No Physical Exam Vital Signs Last Vital Signs Temp 36.7 C 06/15/22 21:00 Pulse 66 06/15/22 21:00 Resp 18 06/15/22 21:00 BP 137/81 06/15/22 21:00 Pulse Ox 97 06/15/22 21:00 O2 Del Method 06/15/22 21:00 Testing Laboratory Results 06/16/22 06:03 PT 11.4 Seconds (9.0-12.0) 06/13/22 18:40 INR 1.1 (0.9-1.1) 06/13/22 18:40 APTT 26.2 Seconds (21.0-31.0) 06/13/22 18:40 Urine Color Dark Yellow 06/14/22 06:08 Urine Appearance Clear (Clear) 06/14/22 06:08 Urine pH 5.0 (4.5-7.5) 06/14/22 06:08 Ur Specific [place] > 1.045 (1.000-1.030) H 06/14/22 06:08 Urine Protein Negative (Negative) 06/14/22 06:08 Urine Glucose (UA) Negative (Negative) 06/14/22 06:08 Urine Ketones Trace (Negative) H 06/14/22 06:08 Urine Nitrite Negative (Negative) 06/14/22 06:08 Ur Leukocyte Esterase Negative (Negative) 06/14/22 06:08 Electrocardiogram Date: 06/14/22 DICTATED BY:Cordell Lopez MD Test Reason : Blood Pressure : / mmHG Vent. Rate : 063 BPM Atrial Rate : 063 BPM P-R Int : 170 ms QRS Dur : 094 ms QT Int : 376 ms P-R-T Axes : 052 -08 053 degrees QTc Int : 384 ms Normal sinus rhythm Inferior infarct , age undetermined Possible Anterior infarct , age undetermined Abnormal ECG When compared with ECG of 21-APR-2017 17:39, No significant change was found Confirmed by Cordell Lopez ([id number]) on 06/14/2022 10:11:02 PM Chest X-Ray Date: 06/13/22 XR chest 1V portable CLINICAL HISTORY: Chest pain, nonspecific TECHNIQUE: Single frontal radiograph of the chest was obtained. Comparison: Comparison is made to chest radiograph 07/10/2015 FINDINGS: No lines and tubes are seen. The cardiomediastinal silhouette is normal. The lungs are clear. No evidence of pleural effusion or pneumothorax. IMPRESSION: No acute chest disease.
[2022-06-16 07:20] LABS: Albumin Globulin Ratio 1.3 (0.9-2); Albumin Level 3.1 gm/dl (3.4-5.0); BUN Creatinine Ratio 6.9 (10-20); Bilirubin,Total 0.9 mg/dl (0.2-1.0); Calcium 8.6 mg/dl (8.5-10.1); Creatinine Clr Calc Pharmacy 59.3 ml/min; Est GFR (African American) 81.6 ml/min; Est GFR (Non-African American) 70.4 ml/min; Globulin 2.4 gm/dl (2.5-4.0); Magnesium 1.8 mg/dl (1.7-2.4); Potassium 4.2 mmol/L (3.5-5.1); Total Protein 5.5 gm/dl (6.0-8.3)
[2022-06-16] MEDS ORDERED: fentaNYL citrate 100 MCG/2 ML VIAL ONE (08:19)
[2022-06-16] MEDS ORDERED: MIDAZOLAM HCL 1 MG/ML 2ML VIAL ONE (08:19)
[2022-06-16] MEDS ORDERED: BUPIVACAINE 0.5 % 5 MG/1 ML MPF 30ML VIAL ONE (09:41)
[2022-06-16] MEDS ORDERED: PHENYLEPHRINE 100MCG/ML 5ML SYR IV PRN (09:44)
[2022-06-16] MEDS ORDERED: HYDROmorphone INJ 1 MG/ML SYRINGE IV PRN (09:44)
[2022-06-16] MEDS ORDERED: LABETALOL HCL IV 5 MG/ML 20ML IV PRN (09:44)
[2022-06-16] MEDS ORDERED: ONDANSETRON INJ 2 MG/ML 2 ML VIAL IV PRN (09:44)
[2022-06-16] MEDS ORDERED: fentaNYL citrate 100 MCG/2 ML VIAL IV PRN (09:44)
[2022-06-16] MEDS ORDERED: ATROPINE SULFATE 0.1 MG/ML 10ML SYR IV PRN (09:44)
[2022-06-16] MEDS ORDERED: ePHEDrine sulfate 50 MG/ML AMP IV PRN (09:44)
[2022-06-16] MEDS ORDERED: PHENYLEPHRINE 100MCG/ML 5ML SYR ONE (10:10)
[2022-06-16] MEDS ORDERED: NEOSTIGMINE METHYLSULFATE 1 MG/ML 10ML VIAL ONE (10:22)
[2022-06-16] MEDS ORDERED: ROCURONIUM BROMIDE 10 MG/ML 5 ML VIAL IV ONE (10:22)
[2022-06-16] MEDS ORDERED: GLYCOPYRROLATE 0.2 MG/ML VIAL ONE ×2 (10:22→10:48)
[2022-06-16] MEDS ORDERED: LIDOCAINE 2% MPF LOCAL 5 ML VIAL INFIL ONE (10:22)
[2022-06-16] MEDS ORDERED: DEXAMETHASONE SOD INJ 4 MG/ML VIAL ONE (10:22)
[2022-06-16] MEDS ORDERED: PROPOFOL IV EMULSION 10 MG/ML 20 ML VIAL IV ONE (10:22)
[2022-06-16] MEDS ORDERED: ONDANSETRON INJ 2 MG/ML 2 ML VIAL ONE (10:22)
[2022-06-16] MEDS ORDERED: FLOSEAL HEMOSTATIC MATRIX 10ML TOP ONE (10:48)
[2022-06-16] MEDS ORDERED: ACETAMINOPHEN 1,000 MG/100 ML VIAL IV ONE (11:04)
[2022-06-16] MEDS ORDERED: oxyCODONE HCL IR 5 MG TAB (IMMEDIATE RELEASE) PO PRN (11:04)
--- NOTE | 2022-06-16 11:04 | Post Operative Brief Note ---
PG Immediate Post Op with CF Date of Surgery June 16, 2022 Pre & Post Diagnosis Operation Date: 06/16/22 09:05 Pre-Op Diagnosis: Acute cholecystitis Post-Op Diagnosis: Acute cholecystitis I identified the patient and participated in the time-out.: Yes Procedure Operation Date: 06/16/22 09:05 Actual Procedures p Laparoscopic Cholecystectomy(Not Applicable) - Eros Santana MD, FACS Surgeon Eros Santana MD, FACS Adaptive Physical Education Specialist Milagros Pham Estimated Blood Loss 10 Findings Consistent with Post-Op Diagnosis Severe acute cholecystitis in the fundus of the gallbladder Specimens Specimen Description: A) Gallbladder
--- NOTE | 2022-06-16 11:50 | Anesthesiology Progress Note ---
Date of Service June 16, 2022 Anesthesia Post Procedure Vital Signs Vital Signs: Temp Pulse Pulse Resp BP BP Pulse Ox 06/16/22 11:35 36.5 C 69 16 144/80 H 96 06/16/22 11:25 75 16 141/86 H 99 06/16/22 11:15 70 16 150/88 H 98 06/16/22 11:09 36.3 C L 74 16 149/87 H 99 06/16/22 08:30 36.6 C 58 L 18 139/74 98 06/16/22 07:41 36.9 C 59 L 18 133/81 97 06/15/22 21:00 36.7 C 66 18 137/81 97 06/15/22 15:06 36.6 C 66 16 129/75 97 06/15/22 11:50 36.4 C L 69 18 127/71 97 O2 Del Method O2 Flow Rate 06/16/22 11:35 Room Air 06/16/22 11:25 Oxymask 5 06/16/22 11:15 Oxymask 5 06/16/22 11:09 Oxymask 5 06/16/22 08:30 Room Air 06/16/22 07:41 Room Air 06/15/22 21:00 Room Air 06/15/22 15:06 Room Air 06/15/22 11:50 Room Air Pain Intensity Bilateral Other: Pain Intensity: 0 Transfer of Care Handoff Completed per policy Notes Mental Status: alert / awake / arousable Patient Amnestic to Procedure: Yes Nausea / Vomiting: adequately controlled Pain: adequately controlled Airway Patency, RR, SpO2: stable & adequate BP & HR: stable & adequate Hydration State: stable & adequate Anesthetic Complications: no major complications apparent and Pt Satisfied with anesthetic care Notes: The patient is awake and comfortable. His vital signs are stable.
--- NOTE | 2022-06-16 12:29 | Operative Report (OR) ---
DATE OF OPERATION: 06/16/2022. NAME OF OPERATION: Laparoscopic cholecystectomy. PREOPERATIVE DIAGNOSIS: Acute cholecystitis. POSTOPERATIVE DIAGNOSIS: Acute cholecystitis. STAFF SURGEON: Eros Santana MD. PIPING DESIGN SPECIALIST: Cecilia Pham PA-C. ANESTHESIA: General. DESCRIPTION OF PROCEDURE: The patient was brought in the operating room and placed on the operating table in supine position. His abdomen was prepped and draped in the usual fashion. Pneumatic stocki ngs and orogastric tube were placed. Incision was made above the umbilicus, carrying dissection down to the fascia, placing a Veress needle producing pneumoperitoneum. An 11 mm port was placed at this level and under visualization, three 5 mm ports placed, one cephalad and two laterally. Gallbladder was very inflamed and the omentum was attached to the gallbladder, but these were just soft adhesion s. His anterior abdominal wall was inflamed from the inflammation of the gallbladder. Gallbladder w as grasped, it was very thick. It was aspirated of thick bile. Dissection was then carried out to [facility] hepatis, identifying the cystic duct and cystic artery. These were clipped and transected a nd the gallbladder dissected away from the liver bed in the usual fashion, it was placed in an Endoba g. Then, after appropriate hemostasis and irrigation, FloSeal was placed into the subhepatic space. The gallbladder was placed in an Endobag. The Endobag was removed through the umbilical site. I di d have to enlarge the fascial defect slightly to remove the gallbladder. Fascia at the umbilicus anayeli sed using 0 PDS suture. The skin was reapproximated using subcuticular 4-0 Monocryl with Dermabond. My certified dental assistant helped with prepping, draping, removal of the gallbladder and closure of the wounds. T patient was transferred to recovery room in stable condition. Job ID: [id number]
[2022-06-16] MEDS: TAMSULOSIN HCL 0.4 MG CAP PO SCH (12:55)
[2022-06-16] MEDS: MAGNESIUM CHLORIDE W/CALCIUM 64MG DELAYED REL TAB PO SCH ×2 (12:56→20:32)
[2022-06-16] MEDS: FAMOTIDINE 20 MG TAB PO SCH (12:56)
[2022-06-16] MEDS: MULTIVITAMIN TAB PO SCH (12:56)
--- NOTE | 2022-06-16 13:19 | Hospitalist Progress Note ---
Date of Service June 16, 2022 Assessment & Plan (1) Acute cholecystitis: Plan: Acute cholecystitis Cholelithiasis --CT ABD:There is prominence of the gallbladder wall with mild pericholecystic fluid and a few stones. Findings are concerning for acute cholecystitis. Plavix held Continue IV ertapenem Also on IV fluids Pain control S/P Laparoscopic cholecystectomy by Dr. Santana, POD #0 On heart healthy regular diet recommend resume plavix at the discretion of surgery Atypical chest pain CAD Secondary to above Continue home medications Plavix held as planned for surgery Monitor Hyperlipidemia On statin Multiple myeloma S/P Revlimid Receiving Xgeva every 3 months outpatient currently in remission DVT Px: SCDs Code Status Full Code Pt was seen and examined in collaboration with Dr. Schmitz, please see addendum A total of 35 minutes were spent with greater than 50% of that time face to face with the patient, personally reviewing all current laboratories, imaging studies, past medication reconciliation, outpatient chart review, and discussion with specialists to collaborate care for the patient with attending. Please see attending documentation for corrections and/or additions. Admission and Anticipated Discharge Date Admission Date: June 14, 2022 Supervising Physician Co-Signing Physician Notes Patient is seen and examined at bedside after having laparoscopic cholecystectomy today. Abdominal pain at surgical site is controlled. Denies any nausea, vomiting, dizziness, chest pain, dyspnea. Physical Exam: Vitals signs as noted above General Appearance:Moderately built and nourished, no apparent distress Head: normocephalic, Atraumatic Eyes: normal inspection, EOMI Neck: supple, Trachea midline Respiratory/Chest: Normal breath sounds, CTA, No accessory muscle use Cardiovascular: S1, S2, No murmur Abdomen/GI:Soft, mild tender, +Surgical scar, Bowel sounds present Extremities/Musculoskeletal:normal inspection, no edema Neurologic/Psych:AAOX3, grossly no focal neurological deficits Skin: normal color, warm Acute cholecystitis Cholelithiasis S/P Laparoscopic cholecystectomy. Advance diet as tolerated. Continue antibiotics for now. Pain control. I personally reviewed the record. Patient is interviewed and examined at bedside. Patient's care is coordinated with Monalisa Moulton PA-C. Please refer to the documentation above for details of patient's presentation and for discussion of other issues. Subjective Pt was seen and examined in room 320. Follow up Lap Sheela 2/2 acute cholecystitis. Pt is lying in bed drowsy but awake. , sister and daughter at beside. Complains of pain 32/10. Requesting analgesia. Denies f/c/s, chest pain, sob, n/v. Tolerated small sips of water thus far. Review of Systems Review of Systems: All systems reviewed & are unremarkable except as noted in HPI & below Physical Exam Physical Exam: Gen: WD/WN, M, NAD, A&O x3 HEENT: Normocephalic, atraumatic, conjunctivae moist, sclerae anicteric, mucous membranes moist. Lung: Clear to Auscultation bilaterally, no wheezes/rales/rhonchi Heart: Regular rate, regular rhythm, no murmurs, rubs, or gallops Abdomen: Soft, NT, ND, hypoactive BS, lap incisions x 4. Extremities: No edema Skin: Warm, no rash, negative turgor. Results & Data Results & Data ([facility]) Vital Signs (Past 12 Hours) Vital Signs Temp Pulse Resp BP Pulse Ox O2 Del Method O2 Flow Rate 06/16/22 11:59 36.4 C L 68 18 151/87 H 95 Room Air 06/16/22 11:35 36.5 C 69 16 144/80 H 96 Room Air 06/16/22 11:25 75 16 141/86 H 99 Oxymask 5 06/16/22 11:15 70 16 150/88 H 98 Oxymask 5 06/16/22 11:09 36.3 C L 74 16 149/87 H 99 Oxymask 5 06/16/22 08:30 36.6 C 58 L 18 139/74 98 Room Air 06/16/22 07:41 36.9 C 59 L 18 133/81 97 Room Air Laboratory Results Short CBC 06/16/22 Range/Units 06:03 WBC 3.84 L (4.8-10.8) K/ul Hgb 12.0 L (14.0-18.0) g/dl Hct 34.7 L (40.1-51.0) % Plt Count 115 L (130-400) K/uL BMP 06/16/22 06:03 Sodium 139 Potassium 4.2 Chloride 109 H Carbon Dioxide 26 BUN 7 Creatinine 1.01 Glucose 99 Calcium 8.6 Liver Function 06/16/22 Range/Units 06:03 Total Bilirubin 0.9 (0.2-1.0) mg/dl AST 18 (13-39) U/L ALT 41 (7-52) U/L Alkaline Phosphatase 44 (34-104) U/L Albumin 3.1 L (3.4-5.0) gm/dl Medications Administered Current Inpatient Medications Acetaminophen (Acetaminophen 325 Mg Tab) 650 mg PO Q4H PRN PRN Reason: Pain or Fever Stop: 07/13/22 23:02 Last Admin: 06/14/22 18:45 Dose: 650 mg Aspirin (Aspirin 81 Mg Ectab) 81 mg PO QPM MANOJ Stop: 07/13/22 23:02 Last Admin: 06/15/22 21:06 Dose: 81 mg Atorvastatin Calcium (Atorvastatin 40 Mg Tab) 80 mg PO QPM MANOJ Stop: 07/14/22 20:59 Last Admin: 06/15/22 21:06 Dose: 80 mg Famotidine (Famotidine 20 Mg Tab) 20 mg PO DAILY MANOJ Stop: 07/14/22 08:59 Last Admin: 06/16/22 12:56 Dose: 20 mg Heparin Sodium (Porcine) (Heparin Sod 5,000 Unit/0.5 Ml Vial) 5,000 units SQ Q12 MANOJ Stop: 07/17/22 08:59 Promethazine HCl 12.5 mg/ (Sodium Chloride) 50.5 mls @ 202 mls/hr IV Q6H PRN PRN Reason: Nausea And Vomiting Stop: 07/13/22 23:02 Lactated Ringer's (Lr) 1,000 mls @ 100 mls/hr IV .Q10H AMNOJ Stop: 07/13/22 23:29 Last Admin: 06/16/22 01:41 Dose: 100 mls/hr Ertapenem 1,000 mg/ Syringe 10 mls @ 2 mls/min IV Q24H MANOJ Stop: 06/24/22 00:00 Last Admin: 06/15/22 21:08 Dose: 2 mls/min Magnesium Chloride (Magnesium Chloride W/Calcium 64mg Delayed Rel Tab) 64 mg PO BID [facility] Stop: 07/15/22 09:29 Last Admin: 06/16/22 12:56 Dose: 64 mg Magnesium Hydroxide (Magnesium Hydroxide Susp 30 Ml Udc) 30 ml PO BID MANOJ Stop: 07/16/22 20:59 Morphine Sulfate (Morphine Sulfate 4 Mg/Ml 1 Ml Carp\Vial) 2 mg IV Q4H PRN PRN Reason: Pain Stop: 06/27/22 23:02 Multivitamins (Multivitamin Tab) 1 tab PO QAM [facility] Stop: 07/14/22 08:59 Last Admin: 06/16/22 12:56 Dose: 1 tab Nitroglycerin (Nitroglycerin Sl 0.4 Mg/Tab Tab) 0.4 mg SL UD PRN PRN Reason: Chest Pain Stop: 07/13/22 23:02 Oxycodone HCl (Oxycodone Hcl Ir 5 Mg Tab (Immediate Release)) 5 - 10 mg PO Q4HWA PRN PRN Reason: Pain Stop: 06/30/22 11:03 Senna/Docusate Sodium (Docusate Sodium/Senna 50/8.6mg Tab) 1 tab PO BID [facility] Stop: 07/16/22 20:59 Tamsulosin HCl (Tamsulosin Hcl 0.4 Mg Cap) 0.4 mg PO DAILY [facility] Stop: 07/14/22 08:59 Last Admin: 06/16/22 12:55 Dose: Not Given
[2022-06-16] MEDS: ASPIRIN 81 MG ECTAB PO SCH (20:31)
[2022-06-16] MEDS: MAGNESIUM HYDROXIDE SUSP 30 ML UDC PO SCH (20:32)
[2022-06-16] MEDS: ATORVASTATIN 40 MG TAB PO SCH (20:32)
[2022-06-16] MEDS: DOCUSATE SODIUM/SENNA 50/8.6MG TAB PO SCH (20:32)
[2022-06-16] MEDS: ERTAPENEM SODIUM 1,000 MG in SYRINGE 0 ML IV SCH (23:26)
[2022-06-16] MEDS: ACETAMINOPHEN 325 MG TAB PO PRN (23:29)
[2022-06-17] MEDS: LACTATED RINGER'S 1,000 ML IV SCH ×2 (03:17→08:43)
[2022-06-17 07:42] LABS: Albumin Level 3.7 gm/dl (3.4-5.0); Bilirubin,Total 0.7 mg/dl (0.2-1.0); Calcium 8.9 mg/dl (8.5-10.1); Magnesium 1.9 mg/dl (1.7-2.4); Potassium 4.3 mmol/L (3.5-5.1)
[2022-06-17 07:55] LABS: Albumin Globulin Ratio 1.2 (0.9-2); BUN Creatinine Ratio 10.4 (10-20); Creatinine Clr Calc Pharmacy 62.4 ml/min; Est GFR (African American) 86.8 ml/min; Est GFR (Non-African American) 74.9 ml/min; Globulin 3.1 gm/dl (2.5-4.0); Total Protein 6.8 gm/dl (6.0-8.3)
[2022-06-17] MEDS: TAMSULOSIN HCL 0.4 MG CAP PO SCH (08:33)
[2022-06-17] MEDS: ACETAMINOPHEN 325 MG TAB PO PRN (08:39)
[2022-06-17] MEDS: MAGNESIUM CHLORIDE W/CALCIUM 64MG DELAYED REL TAB PO SCH (08:40)
[2022-06-17] MEDS: MULTIVITAMIN TAB PO SCH (08:40)
[2022-06-17] MEDS: DOCUSATE SODIUM/SENNA 50/8.6MG TAB PO SCH (08:40)
[2022-06-17] MEDS: MAGNESIUM HYDROXIDE SUSP 30 ML UDC PO SCH (08:40)
[2022-06-17] MEDS: FAMOTIDINE 20 MG TAB PO SCH (08:43)
[2022-06-17] MEDS ORDERED: HEPARIN SOD 5,000 UNIT/0.5 ML VIAL SQ SCH (09:00)
[2022-06-17 09:10] LABS: Hematocrit (blood only) 39.6 % (40.1-51.0); Hemoglobin 13.7 g/dl (14.0-18.0); Mean Corpuscular Hemoglobin 32.7 pg (25.0-34.0); Mean Corpuscular Hgb Conc 34.6 g/dL (32.0-36.0); Mean Corpuscular Volume 94.5 fL (80.0-100.0); Mean Platelet Volume 9.8 fL (9.4-12.4); Platelet Count 140 K/uL (130-400); RDW Coefficient of Variation 12.3 % (11.5-14.5); RDW Standard Deviation 43.1 fL (36.4-46.3); Red Blood Count 4.19 M/uL (4.63-6.08); White Blood Count 9.47 K/ul (4.8-10.8)
--- NOTE | 2022-06-17 10:53 | Discharge Summary ---
Date of Service June 17, 2022 Admission HPI Per Admitting Provider Medical history significant for CAD sp stenting, asymptomatic bradycardia as per records, hypertension, hyperlipidemia, urolithiasis, multiple myeloma status post Revlimid, skin cancer sp post surgery. 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 Patient experience achy epigastric discomfort going to his lower chest and back this afternoon while eating Southern fried chicken. No fever, no chills, no SOB, no prior episodes. Discomfort relieved by Tums and nitroglycerin intake. Patient brought to the ER by family. MEDICAL HISTORY: As above. SURGICAL HISTORY: Hernia repair, knee surgery, urologic procedures, FAMILY HISTORY: Family history of heart disease, multiple myeloma, DM PERSONAL AND SOCIAL HISTORY: Nonsmoker, no chronic intake of alcoholic beverages, retired [employer] employee. Admission Exam Per Admitting Provider GENERAL: Comfortable, pleasant, looks younger for stated age, no respiratory distress SKIN: Normal color, warm HEENT: Alopecia, [place] palpebral conjunctivae, no ptosis, dry buccal mucosa NECK : Supple, no tenderness CHEST : CTA, no tenderness HEART : RRR, no obvious murmurs ABDOMEN: Some distention, minimal epigastric tenderness EXTREMITIES : No LE swelling/tenderness, no other conspicuous deformities noted NEUROLOGIC : Coherent, no facial asymmetry, no other gross focality Principal Diagnosis laparoscopic cholecystectomy -severe acute cholecystitis Discharge Exam Gen: WD/WN, M, NAD, A&O x3 HEENT: Normocephalic, atraumatic, conjunctivae moist, sclerae anicteric, mucous membranes moist. Lung: Clear to Auscultation bilaterally, no wheezes/rales/rhonchi Heart: Regular rate, regular rhythm, no murmurs, rubs, or gallops Abdomen: Soft, NT, ND, hypoactive BS, lap incisions x 4. Extremities: No edema Skin: Warm, no rash, negative turgor. Discharge Data Allergies Allergy/AdvReac Type Severity Reaction Status Date / Time Penicillins Allergy Unknown "PASSED Unverified 06/13/22 20:24 OUT" mannitol [From Zometa] AdvReac split Verified 06/13/22 20:25 vission/head pressure water for injection,sterile AdvReac split Verified 06/13/22 20:25 [From Zometa] vission/head pressure zoledronic acid [From Zometa] AdvReac split Verified 06/13/22 20:25 vission/head pressure Consultations 06/13/22 19:47 ED Decision to Admit Stat 06/13/22 23:27 Consult General Surgery Routine Procedures Performed Operation Date: 06/16/22 09:05 Actual Procedures p Laparoscopic Cholecystectomy(Not Applicable) - Eros Santana MD, FACS Ordered Studies Chest X-Ray 06/13/22 18:49 XR chest 1V portable CLINICAL HISTORY: Chest pain, nonspecific TECHNIQUE: Single frontal radiograph of the chest was obtained. Comparison: Comparison is made to chest radiograph 07/10/2015 FINDINGS: No lines and tubes are seen. The cardiomediastinal silhouette is normal. The lungs are clear. No evidence of pleural effusion or pneumothorax. IMPRESSION: No acute chest disease. ACT 112: Negative or not required by law. Electronically signed by: Jose Guzmán M.D. 06/13/2022 7:18 PM Abdomen/Pelvis CT 06/13/22 21:33 CT abd pelvis IV con only CLINICAL HISTORY: abd pain TECHNIQUE: Helical axial images of the abdomen and pelvis were obtained and displayed. Automated dose lowering techniques and/or adjustment according to patient size were utilized for this exam. This exam was performed with intravenous contrast. CT DOSE: 285.29 mGy.cm COMPARISON: Comparison is made to CT abdomen pelvis 03/18/2017 FINDINGS: Lower chest: No acute abnormality. Liver: Unremarkable. No focal lesions are seen. Gallbladder and biliary tree: Cholelithiasis is seen with a few stones in the gallbladder neck. Trace pericholecystic fluid is seen. The gallbladder wall measures 3 mm in diameter. No intra- or extrahepatic biliary ductal dilation. Pancreas: Unremarkable, no focal lesions. Spleen: Unremarkable. Adrenals: Unremarkable. Kidneys and ureters: Renal cysts are seen. Bladder: Diffuse homogeneous wall thickening is seen. Reproductive organs: Unremarkable. Bowel: Diverticulosis is seen without evidence of diverticulitis. Lymph nodes Retroperitoneal: Unremarkable. Pelvic: Unremarkable. Mesenteric: Unremarkable. Peritoneum: Normal. Vessels: Atherosclerotic calcifications are seen. Abdominal wall: Unremarkable. Bones: Degenerative changes in the visualized spine. Intraosseous lipomas are noted along with degenerative changes. IMPRESSION: There is prominence of the gallbladder wall with mild pericholecystic fluid and a few stones. Findings are concerning for acute cholecystitis. ACT 112: Negative or not required by law. Electronically signed by: Jose Guzmán M.D. 06/13/2022 10:15 PM Hospital Course (1) Acute cholecystitis: Acute cholecystitis Cholelithiasis --CT ABD:There is prominence of the gallbladder wall with mild pericholecystic fluid and a few stones. Findings are concerning for acute cholecystitis. Plavix held tx with Ertapenem while in pt tx with IVF, tolerating regular diet at discharge Pain control S/P Laparoscopic cholecystectomy by Dr. Santana, POD #1 On heart healthy regular diet plavix being resumed at discharge Surgery placing on Cipro for additional 5 days, will also add Flagyl for additional 5 days Atypical chest pain CAD Secondary to above Continue home medications Monitor Hyperlipidemia On statin Multiple myeloma S/P Revlimid Receiving Xgeva every 3 months outpatient currently in remission DVT Px: SCDs Code Status Full Code Pt was seen and examined in collaboration with Dr. Schmitz, please see addendum Pt is being discharged today with close outpatient follow up with General Surgery and PCP. He is hemodynamically stable at time of discharge, in good spirits, tolerating regular diet, w/o abd pain and passing flatus. A total of 35 minutes were spent with greater than 50% of that time face to face with the patient, personally reviewing all current laboratories, imaging studies, past medication reconciliation, outpatient chart review, and discussion with specialists to collaborate care for the patient with attending. Please see attending documentation for corrections and/or additions. Total Time Total Time Spent Total Time Spent (In Minutes): 35 Discharge Plan Discharge Items Patient Disposition: Home - Self-Care Reason For Visit: CHEST PAIN Discharge Diagnosis: laparoscopic cholecystectomy -severe acute cholecystitis Activity: Per Instructions section Activity Comment: light activity for 4 weeks Lifting: No more than 10 pounds Bathing Comment: may shower; no soaking in tubs/pools Sexual Activity: When tolerated Exercise/Sports: Wait until after follow-up appointment Exercise Comment: wait 4 weeks Driving/Machine Use: no driving while taking any narcotic for pain Non-emergency contact: Primary Care Provider and Surgeon Call non-emergency contact if: you have any medication questions, your symptoms worsen, your pain is not controlled, your pain is concerning for you, you have a fever, your temperature is above 101.5, your wound has increased redness, your wound has increased drainage and your wound pain has increased Follow-up/Referrals: Eros Santana MD, FACS [Physician] - 06/26/22 9:15 am Tacos Ngo MD [Primary Care Provider] - 06/22/22 3:00 pm (Date & Time 06/22/2022 3:00 PM Provider Tacos Ngo MD Department [facility] ) Diet: Regular Addtl Attending Provider Instructions: SPECIAL CARE INSTRUCTIONS: 2 Antibiotics were prescribed for you. Cipro 500mg by mouth twice daily for 5 additional days Flagyl 500mg three times a day for 5 additional days Please complete antibiotics in entirety. Recommend taking probiotics over the counter while on antibiotic therapy -See below for stool softeners-avoid constipation * Cover incisions and change daily for comfort/drainage. May leave uncovered with Dermabond/skin glue * May use ibuprofen for pain as tolerated. * Expect some swelling and bruising. Call your doctor if: * Temperature above 101 degrees * Pain not relieved by pain medicine ordered * There is increased drainage or redness from any incision * You have any unanswered questions or concerns [phone]. FOLLOW UP VISIT: If not already scheduled, please call the office for a follow-up visit. For 2 weeksno sutures to remove OFFICE PHONE NUMBER: Dr. Santana Office * Avoid constipation * May Use Senokot S and Milk of Magnesium twice daily as directed on the package Pending Studies at Discharge: Yes Studies:: surgical pathology Stand-Alone Forms: [facility] [employer], Smoking Cessation Medications and DC Order Prescriptions: New hydrocodone-acetaminophen 5-325 mg tablet 1 tab PO Q4H PRN (Reason: pain) Qty: 20 0RF Rx Instructions: For severe pain you may take 2 tablets but not more than 6 tablets in a single day ciprofloxacin HCl 500 mg tablet 500 mg PO BID Qty: 10 0RF metronidazole 500 mg tablet 500 mg PO Q8H 5 Days Qty: 15 0RF Continued aspirin 81 mg tablet,delayed release (DR/EC) 81 mg PO QPM atorvastatin [Lipitor] 80 mg tablet 80 mg PO QPM clopidogrel [Plavix] 75 mg tablet 75 mg PO DAILY multivitamin Tablet 1 tab PO DAILY calcium carbonate-vitamin D3 [Calcium 600 with Vitamin D3] 600 mg(1,500mg) - 500 unit capsule 1 cap PO DAILY famotidine 20 mg tablet 20 mg PO DAILY nitroglycerin 0.4 mg tablet, sublingual 0.4 mg sublingual DIRECTED PRN (Reason: Chest Pain) Xgeva 120 mg/1.7 mL (70 mg/mL) Solution 0 mg SUBCUT DIRECTED Discharge Orders: Discharge Order (Routine); Ordered 06/17/22 Ordered By: Monalisa Peña/Other Patient Handouts: Having Laparoscopic Cholecystectomy, Cholecystectomy Dc Admission Data Admit Date/Time: 06/14/22 06:44 Attending Provider: Gregg Schmitz Admit Provider: Alpesh Marcus Primary Care Provider: Tacos Ngo Other Providers: Monalisa Moulton ; Alpesh Marcus ; Eros Santana ; Rene Hein ; Ryan Castaneda ; Gonzalo Barrientos Jr ; Sourav Penn ; Bora Rodarte ; Cecilia Pham ; Vamsi Grigsby ; Kishan Pichardo Other Interventions: Discharge Summary Assessment (RN) Last Done: 06/17/22 10:54 Supervising Physician Co-Signing Physician Notes Patient is seen and examined at bedside. Doing well on the day of discharge. Offers no complaints. Eager to get discharged. Denies any pain at surgical site. Also denies any nausea, vomiting, chest pain, shortness of breath. Tolerating diet. Physical Exam: Vitals signs as noted above General Appearance:Moderately built and nourished, no apparent distress Head: normocephalic, Atraumatic Eyes: normal inspection, EOMI Neck: supple, Trachea midline Respiratory/Chest: Normal breath sounds, CTA, No accessory muscle use Cardiovascular: S1, S2, No murmur Abdomen/GI:Soft, mild tender, +Surgical scar, Bowel sounds present Extremities/Musculoskeletal:normal inspection, no edema Neurologic/Psych:AAOX3, grossly no focal neurological deficits Skin: normal color, warm Acute cholecystitis Cholelithiasis S/P Laparoscopic cholecystectomy. Tolerated diet Pain control Continue antibiotics upon discharge as recommended by surgery Advised to follow-up with PCP, surgery upon discharge I personally reviewed the record. Patient is interviewed and examined at bedside. Patient's care is coordinated with Monalisa Moulton PA-C. Please refer to the documentation above for details of patient's presentation and for discussion of other issues.
== END 2022-06-17 11:49 | disposition home or self-care (01) ==
LOC: ED 18:16 → 1E 18:16 → 3E 06-14 08:32